=== PATIENT | male | born 1940 | race Caucasian/White ===

== ENCOUNTER → 2024-09-08 09:46 | Outpatient (REF) | payer MEDICARE, OTHER, SELFPAY ==
[2024-09-08 10:30] LABS: Hematocrit 51.9 % (39.0-52.0); Hemoglobin 17.1 g/dL (13.0-18.0); Mean Corp Hgb Conc. 32.9 g/dL (33.0-37.0); Mean Corpuscular Hgb 28.1 pg (27.0-31.0); Mean Corpuscular Volume 85.4 fL (80.0-94.0); Mean Platelet Volume 11.1 fL (7.4-10.4); Platelet Count 196 10^3/uL (130-400); Red Blood Cell Count 6.08 10^6/uL (4.70-6.10); Red Cell Dist. Width 14.7 % (11.5-14.5); White Blood Cell Count 7.4 10^3/uL (4.8-10.8)
[2024-09-08 11:02] LABS: ALT (SGPT) 22 U/L (0-50); AST (SGOT) 22 U/L (17-59); Albumin 4.3 g/dl (3.5-5.0); Alkaline Phosphatase 61 U/L (38-126); Blood Urea Nitrogen 18 mg/dl (9-20); Calcium 9.6 mg/dl (8.4-10.2); Carbon Dioxide 23 mmol/L (22-30); Chloride 109 mmol/L (98-107); Glucose 131 mg/dl (70-99); Sodium 137 mmol/L (135-145); Total Bilirubin 0.9 mg/dl (0.2-1.3); Total Protein 7.1 g/dl (6.3-8.2); eGFR > 60.00
== END ==
LOC: SDSPAT 09:46
PROVIDERS: ATTENDING PHYSICIAN Internal Medicine Cardiovascular Disease; FAMILY PHYSICIAN Internal Medicine
DX: Z01.818 Encounter for other preprocedural examination (principal)
CPT/HCPCS: 36415; 80053; 85027; 86850; 86900; 86901

== ENCOUNTER 2024-09-23 09:04 | Inpatient (IN) | payer MEDICARE, OTHER, SELFPAY ==
[2024-09-21] VITALS (10 sets, daily range): BP systolic 139–178; BP diastolic 85–132; BMI 29.2
[2024-09-21 17:16] LABS: % Basophils 0.4 % (0-2); % Eosinophils 2.5 % (0-6); % Immature Granulocytes 0.4 % (0-0.5); % Lymphocytes 23.5 % (20.5-51.1); % Monocytes 8.4 % (1.7-9.3); % Neutrophils 64.8 % (42.2-75.2); Absolute Eosinophils 0.2 10^3/uL (0-0.7); Absolute Monocytes 0.7 10^3/uL (0.1-0.6); Absolute Neutrophils 5.5 10^3/uL (1.4-6.5); Hematocrit 47.9 % (39.0-52.0); Hemoglobin 15.7 g/dL (13.0-18.0); Mean Corp Hgb Conc. 32.8 g/dL (33.0-37.0); Mean Corpuscular Hgb 28.2 pg (27.0-31.0); Mean Platelet Volume 11.4 fL (7.4-10.4); Nucleated Red Blood Cells % 0 % (-); Platelet Count 161 10^3/uL (130-400); Red Blood Cell Count 5.57 10^6/uL (4.70-6.10); Red Cell Dist. Width 14.6 % (11.5-14.5); White Blood Cell Count 8.4 10^3/uL (4.8-10.8)
[2024-09-21 17:25] LABS: ALT (SGPT) 21 U/L (0-50); AST (SGOT) 25 U/L (17-59); Albumin 4.2 g/dl (3.5-5.0); Alkaline Phosphatase 66 U/L (38-126); Blood Urea Nitrogen 15 mg/dl (9-20); Calcium 9.6 mg/dl (8.4-10.2); Carbon Dioxide 26 mmol/L (22-30); Chloride 106 mmol/L (98-107); Glucose 144 mg/dl (70-99); Sodium 139 mmol/L (135-145); Total Bilirubin 0.9 mg/dl (0.2-1.3); Total Protein 7.2 g/dl (6.3-8.2); eGFR > 60.00
--- NOTE | 2024-09-21 18:42 | ED.GENMED ---
History of Present Illness
General
Chief Complaint: Weakness
Source: patient and significant other
Exam Limitations: none
Time Seen by Provider: 09/21/24 18:41
History of Present Illness
History of Present Illness:
83-year-old male presents with disequilibrium this morning with a fall. Was off most of the morning. Patient felt he was off since eating a hamburger last evening. No chest pain shortness of breath. No syncope. Did have an unusual headache
bifrontal this morning that resolved with Tylenol. The significant other. Currently feels well. Looks well per
Past History
Past History
ED Past Medical History: Arrthythmia and Hypercholesterolemia
ED Past Surgical History: None, Orthopedic and Other (Mohs surgery. Hernia repair)
Social History
Tobacco: Non-smoker
Living: with family
Review of Systems
Review of Systems
All Other Systems: Not applicable
Respiratory: Reports no symptoms
Cardiac: Reports no symptoms
Neurological: Denies weakness or numbness
Phy Exam
Physical Exam
Physical Exam:
GENERAL: Alert and oriented in no apparent distress. Hard of hearing. No scalp trauma
EYE: Orbits normal.
NECK: Supple, mild paracervical tenderness
ENT: Pharynx without erythema
CARDIAC: Regular rate and rhythm without any obvious murmurs.
LUNGS: Clear breath sounds,normal
ABDOMEN: Soft, without focal tenderness or distention
NEUROLOGICAL: Alert and oriented , grossly non-focal. Speech normal. Cranial nerves II through XII intact. [id number] normal. Gait normal for him. Slight shuffled and slight wide-based but this apparently is normal
SKIN: Warm and dry, no rash or lesion, no discoloration, skin intact.
MUSCULOSKELETAL: No edema,no deformity.Good color
PSYCH: Normal and appropriate interaction.
Course
Orders/Labs/Results
Orders:
Orders
09/21/24 16:30
Electrocardiogram (*1) Urgent
Reason for Study: Fatigue / Weakness
CT Head W/o Iv Contrast Urgent
Comment: symptoms started when he woke up this AM
Reason For Exam: weakness, dizziness, unsteady gait,
09/21/24 16:31
EKG- Treatment ONCE
09/21/24 16:57
Complete Blood Count/With Diff Urgent
Comprehensive Metabolic Panel Urgent
09/21/24 18:42
Urinalysis Reflex To Culture Urgent
09/21/24 18:54
CT Cervical Spine W/o Iv Contr Urgent
Comment:
Reason For Exam: Fall/neck pain
Cardiac Monitoring- Treatment ONCE
09/21/24 20:49
EKG [Electrocardiogram (*1)] Urgent
Reason for Study: Other
Other Reason for Exam: arrhythmia
09/21/24 20:50
EKG- Treatment ONCE
09/21/24 22:00
Flush (0.9% Sodium Chloride) [Flush (Nss)] See Dose Instructions IV PER PROTOCOL
09/21/24 22:04
Admit/Transfer Patient As Directed
Co-Sign Provider:
Level of Care: Observation services
Assign to:: Telemetry
Physician / Group: Monica
Diagnosis: Rapid atrial lfibrillaton
Reason for Telemetry: Arrhythmia
Date to Stop Telemetry: 09/24/24
Time to Stop Telemetry: 11:00
PRN Pain Medication Management As Directed
May give lesser potent ordered pain med per pt: Yes
preference::
Protocol:: Medication orders for pain may be administered in a
manner that supports deferring to patient preference
when the pt is:
- Requesting an ordered lesser potent pain medication.
Least to most potent pain medications are defined
as: acetaminophen < NSAID < tramadol < opioids
(morphine, oxycodone, hydromorphone).
- Requesting a lesser dose of the same medication IF
ORDERED.
- Requesting a less intrusive route of administration
if both routes are prescribed by the provider (PO <
IV).
09/21/24 22:06
Code Status As Directed
Resuscitation Status: Full Code
09/24/24 11:00
DC Protocol for Telemetry ONCE
Abnormal Lab Results
09/21/24
16:57
MCHC 32.8 L g/dL
(33.0-37.0)
RDW 14.6 H %
(11.5-14.5)
MPV 11.4 H fL
(7.4-10.4)
Absolute Monos (auto) 0.7 H 10^3/uL
(0.1-0.6)
Glucose 144 H mg/dl
(70-99)
09/21/24 16:57
09/21/24 16:57
Vital Signs
Initial and Last Documented VS:
Initial Vital Signs
Temp Pulse Resp BP Pulse Ox
98.1 F 71 18 178/95 96
09/21/24 16:26 09/21/24 16:26 09/21/24 16:26 09/21/24 16:26 09/21/24 16:26
Last Documented Vital Signs
Temp Pulse Resp BP Pulse Ox
97.4 F 143 20 159/92 94
09/21/24 19:19 09/21/24 22:20 09/21/24 22:20 09/21/24 22:20 09/21/24 22:20
MDM/Problems Addressed
Differential Diagnosis Includes:
Patient describing more of a transient disequilibrium episode this morning. Not describing syncope or near syncope. Currently at baseline. Has a history of atrial fibrillation and is scheduled for an ablation. On Eliquis. Workup in progress.
*Pulse Oximetry
Patient hypoxic: no (96%)
*EKG
Interpreted by ED Provider?: Yes
Interpretation: abnormal
Comparison EKG: changes noted
Heart Rate: 64
Rate: normal
Rhythm: sinus
Barrington: normal axis
Interval: first degree heart block
QRS Pattern: normal QRS
Ischemia: no ischemia
*Critical Care Note
Total Time (30-74mins, 75-104mins- exclusive of procedures): Not Applicable
Data Reviewed
Review of Other/Old Records Reveals: Labs, Records and Testing
Update Note
Update Note:
Patient went into A-fib RVR. Rate 139. Will give his regular sotalol. Very asymptomatic. Will give him a chance to convert on his own. Elected to cardiovert with possible TIA this morning
ED Attending Note
-
Portions of this chart may have been created with voice recognition software.� Occasional wrong word or��sound alike� substitutions may have occurred due to the inherent limitations of voice recognition software.
Discharge Plan
Departure
Patient Disposition: Admit
Date of Disposition: 09/21/24
Time of Disposition: 21:16
Presentation/result/management discussed w/ accepting /: carlos
Discharge Problem:
TIA versus near syncope, PAF/RVR
Prescriptions:
No Action
simvastatin 40 MG tablet
20 mg PO QPM
esomeprazole magnesium [Nexium] 40 MG capsule,delayed release(DR/EC)
40 mg PO PRN PRN (Reason: upset stomach)
Pradaxa:
150 tab PO BID
Sotalol HCl
0.5 tab PO BID
Patient Comments:
Pt states he takes 10mg in the morning and 10mg at night
doxycycline hyclate 100 MG capsule
100 mg PO DAILY
Patient Comments:
finished this prescription today per patient.
Referrals:
Dawit Remy DO [Family Provider, Internal Medicine]
Interventions
Interventions:
*General Assessment Last Done: 09/21/24 19:10
*Neglect/Abuse Screening Last Done: 09/21/24 19:10
*ED- Fall Risk Assessment Last Done: 09/21/24 19:10
*ED COVID-19 Vaccine History Last Done: 09/21/24 19:10
ED- Cardiac Assessment Last Done: 09/21/24 19:10
ED- Neurological Assessment Last Done: 09/21/24 19:10
ED- Pulmonary Assessment Last Done: 09/21/24 19:10
Discharge Date and Time
Print Language: DOMINICAN
--- NOTE | 2024-09-21 21:31 | HPS.HSE ---
Family Physician
-
Family Physician: Dawit Remy
Chief Complaint
-
Weakness
History of Present Illness
This is a 83-year-old with past medical history significant for hyperlipidemia, paroxysmal atrial fibrillation on anticoagulation, hypertension, GERD who presented to the emergency department after having episode of weakness and fall this a.m.
States he had an episode of disequilibrium and a fall this morning. He did not lose consciousness. Fell off most of the morning. Denied having any chest pain or shortness of breath. Reports having an unusual headache that resolved with Tylenol.
Otherwise feels well while he was in the emergency department. After being evaluated in the emergency department he did go into rapid atrial fibrillation with rates as high as 160.
In the ED, blood pressure was 150/90, pulse rate of 160, respirate rate of 14 and temperature of nine 7.4 satting 100% on room air.
ECG currently shows atrial fibrillation with RVR at a rate of 139. No acute ST or T wave changes.
He had a CT of the head which was negative for any acute intracranial bleed. CT of the neck was negative for fracture or dislocation or subluxation.
His electrolytes were within normal limits and BUN/creatinine were normal. CBC was unremarkable.
Medical History
Past Medical History
Past Medical History: Reports HTN, Hypercholesterolemia and Other
Additional Past Medical History:
Proximal atrial fibrillation
Past Surgical History: Reports Other (Hernia repair)
Social History
Tobacco: Non-smoker
Alcohol: None
Drug: None
Personal:
Living: With Family
Employment: Retired
Family History
Family History: Not pertinent
Allergies / Home Medications
Allergies reflects when Allergies were last updated in [facility].
Home Medications with original date entered in [facility]
Allergy/Medication List:
Allergies
Allergy/AdvReac Type Severity Reaction Status Date / Time
No Known Allergies Allergy Verified 12/26/16 06:14
Home Medications
simvastatin 40 mg tablet 20 mg PO QPM 08/02/10
Apixaban 5 mg tablet, 5 mg p.o. twice daily
Sotalol HCl 80 mg tab 80 mg PO BID 12/26/16
Review of Systems
-
Constitutional: Reports No Symptoms
EENT: Reports No Symptoms
Respiratory: Reports No Symptoms
Cardiac: Reports No Symptoms
Abdomen/GI: Reports No Symptoms
: Reports No Symptoms
Musculoskeletal: Reports No Symptoms
Skin: Reports No Symptoms
Neurological: Reports No Symptoms
Endocrine: Reports No Symptoms
Hematologic/Lymphatic: Reports No Symptoms
Psych: Reports No Symptoms
Physical Exam
Vital Signs
Vital Signs
Temp Pulse Resp BP Pulse Ox
97.4 F 167 14 150/99 94
09/21/24 19:19 09/21/24 21:00 09/21/24 21:00 09/21/24 20:47 09/21/24 21:00
Physical Exam
General: Well Developed, Well Nourished and No Apparent Distress
HEENT: NormoCephalic, Moist mucous membranes and Atraumatic
Respiratory: Clear
Cardiac: S1/S2, Irregular Rhythm and Tachycardia; No Murmur or Rub
GI: Soft, Non Tender, Non Distended and Normal Bowel Sounds; No Organomegaly
Rectal: Deferred by Provider
Musculoskeletal: No Clubbing, No Cyanosis and No Edema
Skin: No Rash
Neuro: Nonfocal/grossly intact
Laboratory Results
-
09/21/24 16:57
09/21/24 16:57
Laboratory Results
Total Bilirubin 0.9 mg/dl (0.2-1.3) 09/21/24 16:57
AST 25 U/L (17-59) 09/21/24 16:57
ALT 21 U/L (0-50) 09/21/24 16:57
Alkaline Phosphatase 66 U/L (38-126) 09/21/24 16:57
Data Reviewed
-
CT Scan: Report Reviewed by me
Medical Tests (Nuc Med, Echo, EKG etc): Image Personally Visualized and interpreted
Lab Data: Labs Reviewed by me
Old Records: Reviewed
Impression/Plan
-
IMPRESSION:
83-year-old past medical history significant for proximal atrial fibrillation, hypertension, platypnea presented to the emergency department with weakness and feeling not his usual self and found to be in rapid atrial fibrillation while in the
emergency department. He apparently had a fall at home but no focal injuries. Head CT was negative for any acute intracranial process. C-spine shows no subluxation, fractures or any other injuries. Examination revealed no peripheral injuries.
ECG shows atrial fibrillation at a rate of 140 with 4 degree AV block. He is currently hemodynamically stable. At rest he is satting 98% and asymptomatic. Denies feeling any palpitations. He is pending an ablation next month.
PLAN:
Uncontrolled atrial fibrillation with rapid ventricular response -hemodynamically stable, no signs of congestive heart failure, no sign of cardiac ischemia.
-Admit to telemetry
-Continue sotalol 80 mg twice daily
-PRN metoprolol IV for rate control
-N.p.o. after midnight in case patient may need cardioversion for rate control
-Continue Eliquis 5 mg
-Cardiology consultation.
DVT prophylaxis�on Eliquis
CODE STATUS�full code
[2024-09-22] VITALS (19 sets, daily range): BP systolic 96–145; BP diastolic 64–110; BMI 28.3
[2024-09-22] MEDS: LOPRESSOR 5 MG IV ×2 (02:13→06:13)
[2024-09-22 02:40] LABS: Urine Albumin Negative (Neg - Trace); Urine Bilirubin Negative (Negative); Urine Character Clear (Clear); Urine Color Yellow; Urine Glucose Negative (Negative); Urine Ketone Negative (Negative); Urine Leukocyte Negative (Negative); Urine Nitrite Negative (Negative); Urine Occult Blood Negative (Negative); Urine Urobilinogen Negative (Neg - 1+); Urine pH 6.5 (5.0-9.0)
[2024-09-22 03:08] LABS: Blood Urea Nitrogen 12 mg/dl (9-20); Calcium 9.3 mg/dl (8.4-10.2); Carbon Dioxide 24 mmol/L (22-30); Chloride 109 mmol/L (98-107); Estimated Creatinine Clearance 73 ml/min; Glucose 125 mg/dl (70-99); Magnesium 2.1 mg/dl (1.6-2.3); Potassium 4.6 mmol/L (3.5-5.1); Sodium 137 mmol/L (135-145); eGFR > 60.00
[2024-09-22 03:40] LABS: TSH Reflex To Free T4 2.06 uIU/ml (0.47-4.68)
--- NOTE | 2024-09-22 04:44 | PTCARENOTE ---
Pt. rec'd into room 2250 from ED AAOx3, NAVAJO & forgetful with unsteady gait (fall precautions/bed alarm initiated). A-fib on the monitor with rate up to 160's with activity, 120's with rest. Dose of Lopressor IV given with some improvement; HR down
to high 90's-110's. Pt. oriented to room and plan of care, understanding verbalized. Admission and med list completed. Pt. resting quietly.
--- NOTE | 2024-09-22 08:07 | W.PN.HOSP.TC ---
Today's Communication/Plan
-
Cardiology consult
Assessment / Plan
Assessment / Plan
Gen-AAOx3, NAD
HEENT-NC, AT, anicteric, clear oral mm
Neck-supple
CV-reg, no M, +S1/S2
Lungs-clear B/L
Abd-soft, NT, ND
Ext-no edema
Musculoskeletal-no cyanosis, clubbing
Skin-warm and dry
Neuro-grossly non-focal
Psych-calm, cooperative
Paroxysmal atrial fibrillation -with RVR. Presented with symptoms of generalized weakness and fall.
Rates remain fast today. Will discuss with cardiology. Currently on sotalol and Eliquis. Can start IV Cardizem if okay with cardiology. Await their input.
TSH 2.0.
Essential hypertension with hypertensive urgency -he is due for his ramipril this morning. If we start Cardizem for rate control anticipate blood pressure will also improve.
Hyperlipidemia -on simvastatin.
Full code
Anticipated Discharge: 24 - 48 hours
Subjective/Interval History
-
Date of Service: September 22, 2024
Patient seen and examined. States he feels better. Denies any chest pain or shortness of breath.
Objective Data
-
Labs:
Laboratory Results
09/22/24
02:30
Sodium 137
Potassium 4.6
Chloride 109 H
Carbon Dioxide 24
BUN 12
Creatinine 0.8
Glucose 125 H
Calcium 9.3
Vital Signs:
Vital Signs
Temp Pulse Resp BP Pulse Ox
98.5 F 143 18 145/109 96
09/22/24 07:55 09/22/24 07:55 09/22/24 07:55 09/22/24 07:48 09/22/24 07:55
I&O
09/21/24 09/22/24 09/23/24
06:59 06:59 06:59
Output Total 400 / 400
Balance -400 / -400
Review of Systems
-
History Source: Patient
All other systems: Reviewed and negative
[2024-09-22] MEDS: BETAPACE 80 MG PO ×2 (08:48→20:19)
[2024-09-22] MEDS: CARDIZEM 15 MG IV (08:48)
[2024-09-22] MEDS: ELIQUIS 5 MG PO (08:48)
[2024-09-22] MEDS: FLUSH (NSS) 1 FLUSH IV (08:50)
[2024-09-22] MEDS: CARDIZEM 125 IV (08:50)
--- NOTE | 2024-09-22 09:27 | PTCARENOTE ---
Patient resting in bed this morning, incontinent of urine as he was struggling to get to the side of the bed and set off alarm. Patient is oriented x 3, but very hard of hearing and vision is poor. Reinforced need to use call giles for assistance.
Assisted with rolling walker to the chair, alarm in place, call giles in reach. Patient in AF with rates up to the 150's, given cardizem 15mg IV as ordered and drip started at 5mg/hr. Remains in AF but did quickly drop to the 50-60's after IVP,
placed cardizem gtt on hold for now, monitoring BP, cardiology notified. Patient's SO now in visiting
--- NOTE | 2024-09-22 09:37 | CM ---
Reviewed chart. Met with Mr. Alvarez and his friend, Stacy to review discharge plans. He states prior to admission he resides with his friend Stacy in a two story home without any steps to enter. He states he has a full flight of steps to get to
bedroom/full bathroom. He states he has a powder room on the first floor. He states prior to admission he was independent with ambulation and adls. He states he does not have any DME in the home. He states he has a prescription plan with [facility]. Will
need to see his current functional level to see if he will have any skilled care needs. The discharge plan is to return home with his friend and [facility] if indicated when medically stable.
[2024-09-22 09:54] LABS: Glucose - Point of Care 120 mg/dl (70-99)
--- NOTE | 2024-09-22 09:56 | CON.NEURO ---
Addendum entered and electronically signed by Mehdi May MD 09/22/24 12:40:
Studies reviewed.
I have personally examined the patient. I reviewed and agree with the SWAT TEAM MEMBER's Note.
My addenda:
Awake, interactive. Maintains eyes closed. No acute distress.
Speech with dysarthria.
Follows 2-step requests w/ difficulty. No tremor.
Extra-ocular movements grossly intact.
Facial movements full and symmetric. Hearing intact to normal conversational volume.
Normal UE movements bilaterally.
Neck: full ROM.
Chest: no dyspnea
Heart: no JVD
Ext: (-) Clubbing, (-) Cyanosis, (-) Edema
IMPRESSIONS/RECOMMENDATIONS:
Abrupt onset of dysarthria and left facial weakness
Most likely due to acute anterior or posterior circulation ischemic stroke due to evidence of left homonymous hemianopsia
MRI of brain without contrast
hold DOAC x 2 days then restart
provide ASA 81 mg daily starting now (300 mg LA), then stop when change back to DOAC
Rehab evaluations
Permissive hypertension (up to 220/120) x 24 hours then normotension
check CTA now due to possible clot for retrieval
follow lipid profile
D/W patient / family / nursing
All questions answered.
Will continue to follow pending results.
Original Note:
Documented by User: Lindsey Jerome NP 09/22/24 12:06
Neuro Assessment/Plan
Assessment
The patient is a right-handed 83-year-old male with persistent atrial fibrillation (on sotalol and apixaban), dyslipidemia, hypertension, and pulmonary nodules who presented to the [facility] on 09/21/2024 with a chief complaint of weakness with an
associated fall now with dysarthria, left facial droop and left hemianopia.
Head CT: No acute intracranial pathology. Mild ventricle sulcal prominence consistent with atrophy.
Head/Neck CTA: No acute vascular pathology. No M1 and M2 occlusion. Less than 50% right proximal internal carotid artery stenosis. 50-69% left proximal internal carotid artery stenosis. Severe multilevel degenerative disc disease. Stable.
Plan
Impression: Acute ischemic CVA not a TNK candidate due to receiving anticoagulation, HCT and CTA without intracranial pathology or LVO
-check MRI brain to evaluate for stroke
-stop anticoagulation for 48 hours than may resume apixaban
-BP goal is normotension.
-check hemoglobin A1C. Goal is normoglycemia.
-check lipid panel, Goal LDL after stroke is <70 continue atorvastatin
-PT/OT/ST evaluations
-DVT prophylaxis
-continue neurochecks and NIHSS per unit guidelines
-stroke education material to be given
Plan of care discussed with Dr. May, nurse, patient and family all questions encouraged and answered.
Consultation
Order
Date of Consultation: 09/22/24
Requesting Provider: hospitalist
Reason for Consult: stroke alert
Subjective/Objective
Subjective Data
Date of Service: September 22, 2024
The patient is a right-handed 83-year-old male with persistent atrial fibrillation (on sotalol and apixaban), dyslipidemia, hypertension, and pulmonary nodules who presented to the [facility] on 09/21/2024 with a chief complaint of weakness with an
associated fall. He had a fall on the day of admission and then felt off for the rest of the day which prompted an ER evaluation. He denies head strike or LOC. Reported having an unusual headache that resolved with Tylenol. While in the emergency
department, his persistent atrial fibrillation began having elevated rates and he was having RVR. Head CT without acute findings. He denies missed doses of apixaban. He was evaluated by Dr. Lake in the outpatient setting last month. The plan
was for atrial fibrillation ablation on 09/28/2024. The patient denies chest pain, dizziness, shortness of breath, and palpitations. This morning for medications at breakfast was seen in his normal state of health around 0850. At 0950 a stroke alert
was called due to left facial droop and dysarthria. He received his apixaban this morning. NIHSS 9. Head CT without acute intracranial pathology. CTA head and neck with no acute vascular pathology, no M1 and M2 occlusion, and less than 50% right
proximal internal carotid artery stenosis. 50-69% left proximal internal carotid artery stenosis. Not a TNK candidate due to receiving anticoagulation. Not an IAT candidate imaging does not show large vessel occlusion.
Objective Data
Vital Signs
Temp Pulse Resp BP Pulse Ox
98.5 F 126 18 153/118 96
09/22/24 07:55 09/22/24 08:48 09/22/24 07:55 09/22/24 08:48 09/22/24 07:55
Lab Results
09/21/24 16:57
09/22/24 02:30
Sodium 137 mmol/L (135-145) 09/22/24 02:30
Potassium 4.6 mmol/L (3.5-5.1) 09/22/24 02:30
BUN 12 mg/dl (9-20) 09/22/24 02:30
Glucose 125 mg/dl (70-99) H 09/22/24 02:30
Calcium 9.3 mg/dl (8.4-10.2) 09/22/24 02:30
Patient Allergies
No Known Allergies Allergy (Verified 12/26/16 06:14)
CVA Assessment
Onset of Stroke Symptoms
Date of onset of symptoms: 09/22/24
Time of onset of symptoms: 09:50
Date last time pt seen normal: 09/22/24
Time last time pt seen normal: 08:50
NIH Stroke Score
Level of Consciousness: 0 - Alert
LOC Questions: 0-Answers both correctly
LOC Commands: 0-Performs both correctly
Best Horizontal Gaze: 1-Partial gaze palsy (right gaze preference)
Visual Ruiz: 1=Partial hemianopia (left hemianopia)
Facial Palsy: 1=Minor paralysis (left droop)
Motor - Right Arm: 0=No drift 10 seconds
Motor - Left Arm: 0=No drift 10 seconds
Motor - Right Le-No drift 5 seconds
Motor - Left Le-No drift 5 seconds
Limb Ataxia: 1-Present in one limb
Sensation: 2-Severe loss
Best Language: 0-No aphasia
Dysarthria: 1-Mild slurring
Extinction and Inattention: 2-Total mark inattention
NIH Total Score:: 9
Tenecteplase Contraindications
Inclusion and Exclusion criteria reviewed: Yes
Reasons for NON-Tx with Thrombolytics ABSOLUTE Exclusions: Patient taking oral anticoagulant and last dose within 48 hours
IAT Contraindications: Imaging doesn't show large vessel occlusion as cause of stroke
Modified Madison Score (MRS)
-
Modified Arnel Scale (mRS): Moderate disability. Requires some help, able to walk unassisted.
Score: 3
Review of Systems
-
Unable to obtain full review of systems at this time due to: Acuity
Physical Exam
-
General: Appears Stated Age
Eyes: Wolsey Conjunctivae
HEENT: Normocephalic and Atraumatic
Respiratory: No Dyspnea
Cardiac: No JVD
GI: Non-distended
Skin: Warm and Dry
Extremities: No Clubbing, No Cyanosis and No Edema
Psych: Unable to Assess
Extended Neurological Exam
Mood & Affect: Unable to Assess
Attention Span & Concentration: Awake, Alert, Interactive and No Difficulty with 2 Step Request
Tremor: Hand Tremor Absent and Head Tremor Absent
Speech: Dysarthric
Cranial Nerve II: Left Eye: Visual Ruiz Reduced (left minocular hemianopia )
Cranial Nerve II: Right Eye: Visual Ruiz Intact
Cranial Nerves III, IV, : Extraocular Movement: Reduced (right gaze preference)
Cranial Nerve V: Facial Sensation: Reduced (on left)
Cranial Nerve VII: Facial Symmetry: Reduced (left droop)
Cranial Nerve VIII: Hearing: Unremarkable Hearing to Normal Conversational Volume
Muscle Strength, Overall: Full Throughout
Muscle Bulk & Tone: Bulk Unremarkable and Tone Unremarkable
Pronator Drift: No Drift in Upper Extremities and No Drift in Lower Extremities
Coordination: Other (ataxia to LUE)
Gait & Station: Other (gait deferred)
Data Reviewed
-
CT-A: Report Reviewed and Image Reviewed
CT Head: Report Reviewed and Image Reviewed
Labs: Report Reviewed
Lipid Profile: Pending
HgbA1C: Pending
Reviewed with: Physician, Nurse, Patient and Family
Old Records: Summarized
Medications
-
Active Medications
Generic Name Dose Route Start Last Admin
Trade Name Freq PRN Reason Stop Dose Admin
Acetaminophen 650 mg 09/22/24 01:22
Acetaminophen 325 Mg Tablet PO 10/20/24 01:21
Q6HPRN PRN
mild pain/ fever>100.5F
Apixaban 5 mg 09/22/24 08:00 09/22/24 08:48
Apixaban (Eliquis) 5 Mg Tablet PO 10/20/24 07:59 5 mg
BID DEE DEE Administration
Atorvastatin Calcium 20 mg 09/22/24 18:00
Atorvastatin (Lipitor) 20 Mg Tablet PO 10/20/24 17:59
QPM DEE DEE
Diltiazem HCl 125 mg in 125 mls @ 0 mls/hr 09/22/24 08:30 09/22/24 08:50
Cardizem IV 125 mls
PER PROTOCOL DEE DEE Administration
Protocol
Per Protocol
Metoprolol Tartrate 5 mg 09/22/24 01:22 09/22/24 06:13
Metoprolol 5 Mg/5 Ml Vial IV 10/20/24 01:21 5 mg
Q4HPRN PRN Administration
heart rate > 130,SBP > 100
Ramipril 5 mg 09/22/24 08:00 09/22/24 08:48
Ramipril (Altace) 5 Mg Capsule PO 10/20/24 07:59 5 mg
DAILY DEE DEE Administration
Sodium Chloride 0 flush 09/21/24 22:00 09/22/24 08:50
Sodium Chloride 0.9% (Flush) Syringe IV 10/19/24 21:59 1 flush
PER PROTOCOL DEE DEE Administration
Sotalol HCl 80 mg 09/22/24 08:00 09/22/24 08:48
Sotalol 80 Mg Tablet PO 10/20/24 07:59 80 mg
BID DEE DEE Administration
Home Medications
�Medication �Instructions �Recorded
apixaban 5 mg tablet (Eliquis) 5 mg PO BID 09/22/24
ramipril 5 mg tablet 5 mg PO DAILY 09/22/24
simvastatin 20 mg tablet 20 mg PO QPM 09/22/24
sotalol 80 mg tablet 80 mg PO BID 09/22/24

Documented by User: Mehdi May MD 09/22/24 12:29
CVA Assessment
NIH Stroke Score
NIH Total Score:: 9
Modified Arnel Score (MRS)
-
Score: 3
--- NOTE | 2024-09-22 10:00 | CON.CAR ---
Addendum entered and electronically signed by Mingo Renee MD 09/22/24 12:38:
I saw and examined the patient.
The PIPE FITTER HELPER's note was reviewed and I agree with the note.
Comment:
83-year-old male with persistent atrial fibrillation (on sotalol and apixaban), dyslipidemia, hypertension, and pulmonary nodules who presented to the emergency department with a chief complaint of weakness with an associated fall. Cardiology is
consulted for A-fib with RVR. Initial imaging in the ER showed no acute intracranial abnormality. He was found to be in A-fib with RVR with heart rates in the 160s�170s so was given an IV diltiazem bolus at 8:38 AM. Thereafter, heart rates were
in the 50s�60s and BPs decreased to 90s/60s. Around 10 AM a rapid response was called for left facial droop and visual changes. Head CT showed no acute intracranial pathology and head/neck CTA showed no acute vascular pathology. Neurology is
following. Of note, diltiazem was recently stopped as an outpatient due to concern for it causing fatigue. Patient is scheduled for atrial fibrillation ablation on 09/28/[address] Lake.
Physical exam reveals ill-appearing man; he is confused and very sleepy; heart rate is regular with an irregular rhythm; he has no murmurs, lungs are clear, and he has no lower extremity edema
Concern for stroke. Neurology following. So far CT/CTA were unremarkable. Follow-up brain MRI. Neurology recommends holding anticoagulation for 48 hours. Aim to keep BP normal.
Persistent atrial fibrillation. RVR on admission, now resolved after 1 dose of IV diltiazem. Hold additional rate control for now given bradycardia and borderline blood pressures. Continue sotalol. Eliquis on hold for possible CVA as above. Plan
is for eventual rhythm control with ablation 09/28/2024
Original Note:
Consultation
Consultation Request
Date/Time Consultation Requested: 09/22/2024 01:20
Date/Time Consultation Performed: 09/22/2024 09:00
Requesting Provider: Dr. Anderson
Performing Provider: VERONICA Avendaño for Dr. Renee
Reason for Consultation: Atrial fibrillation with rapid ventricular response
Medical History
-
Chief Complaint: Weakness with mechanical fall
History of Present Illness:
Patricio Alvarez is an 83-year-old male with persistent atrial fibrillation (on sotalol and apixaban), dyslipidemia, hypertension, and pulmonary nodules who presented to the emergency department with a chief complaint of weakness with an associated
fall. He presented with his significant other, Stacy. He had a fall on 09/21/2024 and then fell off for the rest of the day. He presented for ER evaluation. While in the emergency department, his persistent atrial fibrillation began having
elevated rates and he was having RVR. Head CT without acute findings. He denies missed doses of apixaban. He was evaluated by Dr. Lake in the outpatient setting last month. The plan was for atrial fibrillation ablation 09/28/2024. The patient
denies chest pain, dizziness, shortness of breath, and palpitations.
Past Medical History
Past Medical History: Arrhythmias (Persistent atrial fibrillation [sotalol & apixaban]), HTN, Hypercholesterolemia and Other (Pulmonary nodules)
Past Surgical History: Other (Hernia repair)
Social History
Tobacco: Non-Smoker
Alcohol: Occasional
Drug: None
Personal: Partner (Stacy)
Employment: Retired
Family History
Family History: Reviewed & Not Pertinent
Allergies / Home Medications
Allergy/AdvReac Type Severity Reaction Status Date / Time
No Known Allergies Allergy Verified 12/26/16 06:14
�Medication �Instructions �Recorded �Confirmed �Type
apixaban 5 mg tablet (Eliquis) 5 mg PO BID 09/22/24 09/22/24 History
ramipril 5 mg tablet 5 mg PO DAILY 09/22/24 09/22/24 History
simvastatin 20 mg tablet 20 mg PO QPM 09/22/24 09/22/24 History
sotalol 80 mg tablet 80 mg PO BID 09/22/24 09/22/24 History
Review of Systems
-
History Source: Patient
All other systems: Negative unless noted
Constitutional: Fatigue
EENT: No Symptoms
Respiratory: No Symptoms
Cardiac: No Symptoms
Abdomen/GI: No Symptoms
: No Symptoms
Musculoskeletal: No Symptoms
Skin: No Symptoms
Neurological: No Symptoms
Endocrine: No Symptoms
Hematologic/Lymphatic: No Symptoms
Physical Exam
Vital Signs
Temp Pulse Resp BP Pulse Ox
98.5 F 126 18 153/118 96
09/22/24 07:55 09/22/24 08:48 09/22/24 07:55 09/22/24 08:48 09/22/24 07:55
Lab Results
09/21/24 16:57
09/22/24 02:30
Physical Exam
General: Well Developed, Well Nourished and Comfortable
HEENT: Other (Conjunctival redness, profoundly hard of hearing)
Respiratory: Non Labored Respirations
Cardiac: S1/S2 and Irregular Rhythm
Breast: Deferred by me
GI: Soft, Non Tender, Non Distended and Normal Bowel Sounds
Rectal: Deferred by Provider
Genito-urinary: No Costovertebral Tender
Musculoskeletal: No Clubbing, No Cyanosis and No Edema
Skin: Warm and Dry
Neuro: Oriented
Hematologic/Lymphatic: No Lymphadenopathy
Psych: Calm
Impression / Plan
-
I/P: 83M with persistent atrial fibrillation (on sotalol and apixaban), dyslipidemia, hypertension, and pulmonary nodules who presented to the emergency department with a chief complaint of weakness with an associated fall.
Primary oil recovery operator: Dr. Gotti
EP: Dr. Lake
Persistent atrial fibrillation, now with RVR
- Still in RVR on sotalol, add diltiazem bolus and drip - this requires intensive monitoring
- Plan is for eventual rhythm control with ablation 09/28/2024
- Oral Anticoagulation: Apixaban 5 mg twice daily, he denies missed doses and abnormal bleeding, he did have a fall prior to this admission
- [id number]: Score at least 3 (HTN, age 75 or more)
Mechanical fall with associated weakness, per primary service
Hypertension, may need to hold ramipril to allow for more rate control
Dyslipidemia, on simvastatin
Data Reviewed
-
EKG: Report Reviewed by me (Atrial fibrillation with rap ventricular response, T wave abnormality in inferior and lateral leads, rate 139)
CT Scan: Report Reviewed by me (Head: No acute intracranial abnormality; C-spine: No acute abnormality)
Medical Tests (Nuc Med, Echo etc): Report Reviewed by me (TTE 2022: Grade III DD. LVEF 55 to 60%.)
Labs: Labs Reviewed by me
Old Records: Reviewed
--- NOTE | 2024-09-22 10:08 | PTCARENOTE ---
Ordered the patient breakfast, went in to check on him and re check BP. Patient appeared to be sleeping in the chair but left facial droop noted. Patient slow to respond with garbled speech and left arm weak when he was asked to raise it. DUCT MAKER
called, patient transferred to the bed and is now in CT with ICU nurse and neurology. SO updated and waiting in the room.
--- NOTE | 2024-09-22 10:12 | RR ---
A Rapid Response was called on this patient, please see Rapid Response form.
[2024-09-22] MEDS: NSS 1000 IV (13:25)
[2024-09-22] MEDS: ASPIR LOW (ENTERIC COATED) 81 MG PO (13:57)
--- NOTE | 2024-09-22 15:01 | PTCARENOTE ---
Patient passed swallowing test without difficulty. Still has a slight left facial droop with slight drooling with liquids but no coughing and able to swallow pills. Patient is receiving 1L NSS at 250ml/hr as ordered by cardiology. Additional IV
bolus ordered by Dr. Sumner, however ok to d/c that duplicate bolus as per attending. Patient having an echo at the bedside. Remains in AF, with rate in the 70's, BP 120/89.
[2024-09-22] MEDS: LIPITOR 20 MG PO (17:40)
[2024-09-22] MEDS: SIMBRINZA 1%-0.2% OPHTH SUSP 1 DROP OPHTH (17:43)
[2024-09-22] MEDS: XALATAN OPHTHALMIC SOLUTION OPHTH (17:43)
[2024-09-22] MEDS: ELIQUIS PO (20:14)
[2024-09-22] MEDS: XALATAN OPHTHALMIC SOLUTION 1 DROP OPHTH (20:18)
[2024-09-22] MEDS: NON-FORMULARY ITEM 1 UNIT OPHTH (22:10)
--- NOTE | 2024-09-22 23:21 | PTCARENOTE ---
Received patient at change of shift. Afib on the monitor, HR in the 80s. NIHSS 3 at change of shift, L facial droop and L sided neglect. Bed alarm in place. Reports from Neurology and Cardiology say Nhung on hold but no order, confirmed with REHAB OFFICE COORDINATOR S
Elle and held Nhung. No complaints from pt at this time, call giles within reach.
[2024-09-23] VITALS (9 sets, daily range): BP systolic 92–150; BP diastolic 62–95; PULSE 135–200; BMI 28.2
[2024-09-23 04:29] LABS: Blood Urea Nitrogen 12 mg/dl (9-20); Calcium 9.7 mg/dl (8.4-10.2); Carbon Dioxide 21 mmol/L (22-30); Chloride 111 mmol/L (98-107); Estimated Creatinine Clearance 73 ml/min; Glucose 105 mg/dl (70-99); HDL Cholesterol 49 mg/dl; LDL Cholesterol, Calculated 130 mg/dl; Potassium 4.7 mmol/L (3.5-5.1); Sodium 139 mmol/L (135-145); Total Cholesterol 212 mg/dl (50-199); Triglyceride 169 mg/dl (10-149); Very Low Density Lipoprotein 33 mg/dl (0-30); eGFR > 60.00
--- NOTE | 2024-09-23 07:21 | W.PN.HOSP.TC ---
Addendum entered and electronically signed by Jone Sumner DO 09/23/24 12:33:
Discussed with cardiology and neurology. Pradaxa started for potential Eliquis failure.
Updated patient's son Juni on the phone. All questions answered.
Anticipate discharging to acute rehab when stable.
Original Note:
Today's Communication/Plan
-
Flomax
PT/OT
Control heart rate
Hold Eliquis
Start Lovenox for VTE prophylaxis
Assessment / Plan
Assessment / Plan
Gen-AAOx3, NAD
HEENT-NC, AT, anicteric, clear oral mm
Neck-supple
CV-reg, no M, +S1/S2
Lungs-clear B/L
Abd-soft, NT, ND
Ext-no edema
Musculoskeletal-no cyanosis, clubbing
Skin-warm and dry
Neuro-grossly non-focal
Psych-calm, cooperative
Acute strokes -presumably embolic given distribution on MRI, right frontal, parietal, occipital lobes, as well as posterior right insular cortex.
Timing of stroke suspicious for hemodynamic influence given onset 2 hours after IV Cardizem morning of September 22. Nursing noted fairly rapid drop in heart rate and blood pressure after Cardizem administration. He never received IV Cardizem infusion,
only got the bolus dose.
Today the patient feels back to baseline. He was not even aware that he had a stroke. I see no significant neurologic deficits.
CTA head and neck shows no acute vascular pathology. No M1/M2 occlusion. Less than 50% right proximal ICA stenosis, 50 to 69% left proximal ICA stenosis. Severe multilevel degenerative disc disease.
PT/OT consulted. No issues with swallowing.
Neurology recommends holding Eliquis for 48 hours, use aspirin 81 mg daily until then. Continue atorvastatin.
Permissive hypertension. He did require 1 L of IV fluids yesterday for hypotension. Blood pressure improved.
Paroxysmal atrial fibrillation -with RVR. Presented with symptoms of generalized weakness and fall.
Rates remain fast today. Currently on sotalol and Eliquis. Cardiology contemplating eventual rhythm control with ablation on Saturday.
TSH 2.0.
Essential hypertension with hypertensive urgency -urgency resolved. Ramipril on hold for relative hypotension.
Hyperlipidemia -on simvastatin at home, currently on atorvastatin.
Nursing notes urinary frequency and need to stand to urinate. Bladder scan without significant residual volume. Urinalysis negative. Will add Flomax.
Full code
Dispo -PT recommending acute rehab. Will discuss with case management.
Anticipated Discharge: > 48 hours
Subjective/Interval History
-
Date of Service: September 23, 2024
Patient seen and examined. No complaints.
Objective Data
-
Labs:
Laboratory Results
09/23/24
03:57
Sodium 139
Potassium 4.7
Chloride 111 H
Carbon Dioxide 21 L
BUN 12
Creatinine 0.8
Glucose 105 H
Calcium 9.7
Vital Signs:
Vital Signs
Temp Pulse Resp BP Pulse Ox
97.8 F 67 18 139/94 96
09/23/24 04:00 09/23/24 05:00 09/23/24 04:00 09/23/24 03:53 09/23/24 04:00
I&O
09/22/24 09/23/24 09/24/24
06:59 06:59 06:59
Intake Total 1480 / 1480
Output Total 400 / 400 2300 / 2300
Balance -400 / -400 -820 / -820
Review of Systems
-
History Source: Patient
All other systems: Reviewed and negative
--- NOTE | 2024-09-23 08:13 | PTCARENOTE ---
Patient resting in bed this morning, NIH completed with outgoing asset protection specialist RN. Improvement noted with patient's left facial droop and LUE ataxia. Still has inattention to his left side, but moves his LUE and LLE well with equal strength. Patient
seen by Dr. Sumner, notified of the patient's frequent episodes of urination throughout the night, with difficulty starting his stream. Remains in AF with rates in the 130's, Dr. Sumner will discuss rate control with cardiology.
[2024-09-23 08:50] LABS: Glycohemoglobin (HgbA1c) 6.4 % (4.0-5.6)
[2024-09-23] MEDS: ASPIR LOW (ENTERIC COATED) 81 MG PO (09:13)
[2024-09-23] MEDS: BETAPACE 80 MG PO ×2 (09:13→19:49)
[2024-09-23] MEDS: FLUSH (NSS) 2 FLUSH IV (09:14)
[2024-09-23] MEDS: FLOMAX 0.4 MG PO (09:14)
[2024-09-23] MEDS: SIMBRINZA 1%-0.2% OPHTH SUSP 1 DROP OPHTH ×3 (09:14→17:21)
--- NOTE | 2024-09-23 09:42 | W.PN.CD ---
Today's Communication / Plan
-
- Continue sotalol.
- Given severe bradycardia and hypotension with new CVA, we will allow higher heart rate and blood pressure
Impression / Plan
-
I/P: 83M with persistent atrial fibrillation (on sotalol and apixaban), dyslipidemia, hypertension, and pulmonary nodules who presented to the emergency department with a chief complaint of weakness with an associated fall.
Primary observation nurse: Dr. Myers
EP: Dr. Lake
Persistent atrial fibrillation, now with RVR
- Still in RVR on sotalol, add diltiazem bolus and drip - this requires intensive monitoring
- Brain MRI on 09/22/2024 showed numerous foci of restricted diffusion within the right frontal, parietal and occipital lobes involving posterior right insular cortex with acute infarctions. This could be consistent with emboli versus episodes of
hypoperfusion. Patient reports that he has been compliant with Eliquis.
- Eliquis was held to avoid any hemorrhagic transformation. Case was discussed with neurology.
- Neurology is willing to restart anticoagulation now.
- It is unclear whether this is Eliquis failure versus hypoperfusion with hypotension due to severe bradycardia. Either way it would be safer to switch him to Pradaxa which is a thrombin inhibitor.
- Patient was scheduled for A-fib ablation on 09/28/2024
- With the identification of new small strokes, we will postpone the ablation for him to recover completely. Will plan for doing a A-fib ablation in 2 to 3 months.
- Oral Anticoagulation: Switch apixaban to dabigatran. 50 mg twice a day.
- [id number]: Score at least 5 (HTN, age, CVA)
Acute CVA
- Numerous foci and multiple areas of the brain identified on 09/22/2024
- Minimal deficit at the moment.
- Eliquis was held to avoid hemorrhagic transformation.
- Okay to resume anticoagulation as discussed with neurology.
- Will start dabigatran 150 twice a day.
Mechanical fall with associated weakness, per primary service
- Possible ongoing small stroke
Hypertension, may need to hold ramipril to allow for more rate control
Dyslipidemia, on simvastatin
Physical Exam
Vital Signs/Labs
Vital Signs
Temp Pulse Resp BP Pulse Ox
97.4 F 123 22 139/94 97
09/23/24 07:00 09/23/24 08:00 09/23/24 07:00 09/23/24 03:53 09/23/24 07:00
09/22/24 09/23/24 09/24/24
06:59 06:59 06:59
Actual Weight 91.9 kg 91.6 kg
09/21/24 16:57
09/23/24 03:57
Magnesium 2.1 mg/dl (1.6-2.3) 09/22/24 02:30
Triglycerides 169 mg/dl (10-149) H 09/23/24 03:57
LDL Cholesterol, Calc 130 mg/dl 09/23/24 03:57
VLDL Cholesterol, Calc 33 mg/dl (0-30) H 09/23/24 03:57
HDL Cholesterol 49 mg/dl 09/23/24 03:57
Physical Exam
Constitutional: No acute distress and Comfortable
EENT: Anicteric and Moist mucous membranes
Cardiovascular: Pedal edema is absent, JVD pressure is normal, Rhythm/rate is irregular and Systolic murmur present
Respiratory: Respiratory effort normal and Lungs clear to auscul.
GI: Soft and Normal bowel sounds
Neuro/Psych: Alert, Oriented and Other (Hard of hearing)
Data Reviewed
-
Date of Service: September 23, 2024
Medical Decision Making: Reviewed Test Results, Test Interpretation and Review of Case with other Provider
EKG: Tracing Personally Visualized and interpreted
Echo: Report Reviewed by me
X-Ray/CT/US/MRI/NUC/PET: Image Personally Visualized and interpreted and Report Reviewed by me
Medical Tests (PFT, Pathology etc): Discussed with Physician and Discussed with Patient
Labs: Labs Reviewed by me
Old Records: Reviewed
--- NOTE | 2024-09-23 09:43 | W.PN.NEURO.1 ---
Addendum entered and electronically signed by Mehdi May MD 09/23/24 10:54:
Studies reviewed.
I have personally examined the patient. I reviewed and agree with the OPEN HEARTH LABORER's Note.
My addenda:
Awake, alert, interactive. No acute distress.
Speech intact.
Follows 2-step requests w/o difficulty. No tremor.
Extra-ocular movements grossly intact.
Facial movements full and symmetric. Hearing intact to normal conversational volume.
Normal UE movements bilaterally.
Neck: full ROM.
Chest: no dyspnea
Heart: no JVD
Ext: (-) Clubbing, (-) Cyanosis, (-) Edema
IMPRESSIONS/RECOMMENDATIONS:
Abrupt onset of change in mental status, left-sided facial droop and MRI proven acute ischemic embolic stroke. Presumed that stroke is secondary to anticoagulant failure at this time. Patient has evidence of a left homonymous hemianopsia at this
time
Would restart anticoagulation at this time due to small sized and numerous strokes
Stop aspirin when anticoagulation is resumed
Increase atorvastatin dose to 80 mg due to elevated LDL
Eventual outpatient vascular surgery evaluation due to relative stenosis of the left ICA
Would restrict driving for the patient until and unless approved by Occupational Therapy
D/W patient
Will continue to follow as needed.
Original Note:
Documented by User: Nina Garcia NP 09/23/24 10:19
Today's Communication / Plan
-
.
Neuro Assessment/Plan
Assessment
The patient is a right-handed 83-year-old male with persistent atrial fibrillation (on sotalol and apixaban), dyslipidemia, hypertension, and pulmonary nodules who presented to the [facility] on 09/21/2024 with a chief complaint of weakness with an
associated fall now with dysarthria, left facial droop and left hemianopia. He was not a candidate for TNK/IAT due to apixaban usage and no LVO.
Head CT: No acute intracranial pathology. Mild ventricle sulcal prominence consistent with atrophy.
Head/Neck CTA: No acute vascular pathology. No M1 and M2 occlusion. Less than 50% right proximal internal carotid artery stenosis. 50-69% left proximal internal carotid artery stenosis. Severe multilevel degenerative disc disease. Stable.
MRI brain 09/22/24: There are numerous foci of restricted diffusion within the right frontal, parietal and occipital lobes as well as involving the posterior right insular cortex which are consistent with acute infarctions. There is no evidence of
hemorrhagic transformation.
I. Acute right frontal, parietal, and occipital embolic appearing ischemic infarcts. Etiology of stroke concerning for possible apixaban failure. Hypotension/bradycardia possibly playing a role; however, given L ICA stenosis, would expect infarcts
to also be in the left hemisphere if this was the primary etiology of stroke.
II. L ICA 50-70% stenosis, asymptomatic.
III. Afib.
IV. Hyperlipidemia.
Plan
-Okay to resume anticoagulation today.
-Once anticoagulation is resumed, stop aspirin.
-Goal normotension.
-Goal normoglycemia, hbA1c is 6.4.
-LDL goal is <70. LDL is 130. Home simvastatin 20mg changed/increased to atorvastatin 80mg daily.
-NIHSS and neurological checks per unit guidelines.
-Patient provided with a stroke education packet.
-PT/OT/ST evaluations
-DVT prophylaxis.
-Follow-up with Vascular surgery as an outpatient regarding L ICA stenosis.
-Patient should follow-up with Neurology as an outpatient.
Plan of care discussed with Dr. May, nurse, and patient; all questions encouraged and answered.
Subjective/Objective
Subjective Data
Date of Service: September 23, 2024
No acute events overnight. Patient reports that he is feeling improved today. He denies any headache, dizziness, vision changes, and speech/swallow difficulty.
Objective Data
Vital Signs
Temp Pulse Resp BP Pulse Ox
97.4 F 123 22 139/94 97
06/11/25 07:00 09/23/24 08:00 09/23/24 07:00 09/23/24 03:53 09/23/24 07:00
Lab Results
09/21/24 16:57
09/23/24 03:57
Sodium 139 mmol/L (135-145) 09/23/24 03:57
Potassium 4.7 mmol/L (3.5-5.1) 09/23/24 03:57
BUN 12 mg/dl (9-20) 09/23/24 03:57
Glucose 105 mg/dl (70-99) H 09/23/24 03:57
Calcium 9.7 mg/dl (8.4-10.2) 09/23/24 03:57
LDL Cholesterol, Calc 130 mg/dl 09/23/24 03:57
Patient Allergies
No Known Allergies Allergy (Verified 12/26/16 06:14)
LDL Level: >70, statin ordered
Review of Systems
-
History Source: Patient
EENT: Negative Decreased Vision or Swallowing Difficulty
Respiratory: Negative Cough or Trouble Breathing
Cardiac: Negative Chest Pain or Palpitations
Abdomen/GI: Negative Nausea
Neuro: Weakness and Numbness; Negative Dizzy, Headache or Speech Problem
Physical Exam
-
General: No Apparent Distress
Eyes: No Ptosis and PERRLA
HEENT: Normocephalic and Atraumatic
Neck: Full Range of Motion
Respiratory: No Dyspnea
GI: Non-distended
Psych: Unremarkable
Extended Neurological Exam
Mood & Affect: Mood Unremarkable and Affect Unremarkable
Attention Span & Concentration: Awake, Alert and Interactive
Memory: Unremarkable and Able to Recall
Tremor: Hand Tremor Absent and Head Tremor Absent
Involuntary Movement: None
Speech: Quantity Unremarkable and Dysarthric
Cranial Nerve II: Left Eye: Pupillary Reactivity Unremarkable, Pupillary Size Unremarkable and Visual Ruiz Reduced (left hemianopia)
Cranial Nerve II: Right Eye: Pupillary Reactivity Unremarkable, Pupillary Size Unremarkable and Visual Ruiz Reduced (left hemianopia)
Cranial Nerves III, IV, : Extraocular Movement: Extraocular Movement Full in all Directions
Cranial Nerve VII: Facial Symmetry: Normal Facial Symmetry
Cranial Nerve VIII: Hearing: Unremarkable Hearing to Normal Conversational Volume
Cranial Nerves IX, X: Palate Movement: Palate Elevation Symmetric
Cranial Nerve XI: Shoulder Shrug: Unremarkable
Cranial Nerve XII: Tongue Protusion: Midline
Muscle Strength, Overall: Full Throughout
Muscle Bulk & Tone: Bulk Unremarkable and Tone Unremarkable
Pronator Drift: No Drift in Upper Extremities and No Drift in Lower Extremities
Coordination: DONNA Satellites around Left
Modified Wendell Score (MRS)
-
Modified Wendell Scale (mRS): No significant disability. Able to carry out usual activities.
Score: 1
Data Reviewed
-
CT-A: Report Reviewed and Image Reviewed
CT-Perfusion: Report Reviewed and Image Reviewed
CT Head: Report Reviewed and Image Reviewed
MRI Head: Report Reviewed and Image Reviewed
Labs: Report Reviewed
Lipid Profile: Report Reviewed
HgbA1C: Report Reviewed
Reviewed with: Physician and Patient
Medications
-
Active Medications
Generic Name Dose Route Start Last Admin
Trade Name Freq PRN Reason Stop Dose Admin
Acetaminophen 650 mg 09/22/24 01:22
Acetaminophen 325 Mg Tablet PO 10/20/24 01:21
Q6HPRN PRN
mild pain/ fever>100.5F
Aspirin 81 mg 09/23/24 08:00 09/23/24 09:13
Aspirin 81 Mg (Enteric Coated) Tablet PO 09/25/24 07:59 81 mg
DAILY DEE DEE Administration
Atorvastatin Calcium 80 mg 09/23/24 18:00
Atorvastatin (Lipitor) 80 Mg Tablet PO 10/21/24 17:59
QPM DEE DEE
Brinzolamide/Brimonidine Tartrate 0 drop 09/22/24 18:00 09/23/24 09:14
Brinzolamide 1%/Brimonidine 0.2% (Ophth Susp) 8 Ml Bottle [facility] 10/20/24 17:59 1 drop
TID@0800,1200,1800 DEE DEE Administration
Dabigatran 150 mg 09/23/24 08:45 09/23/24 10:10
Dabigatran Etexilate (Pradaxa) 150 Mg Capsule PO 10/21/24 08:44 150 mg
BID DEE DEE Administration
Diltiazem HCl 125 mg in 125 mls @ 0 mls/hr 09/22/24 08:30 09/22/24 08:50
Cardizem IV 125 mls
On Hold: 09/22/24 12:44 PER PROTOCOL DEE DEE Administration
Protocol
Per Protocol
Latanoprost 0 drop 09/22/24 18:00 09/22/24 20:18
Latanoprost 0.005% (Ophthalmic Solution) 2.5 Ml Bottle [facility] 10/20/24 17:59 1 drop
QPM DEE DEE Administration
Metoprolol Tartrate 5 mg 09/22/24 01:22 09/22/24 06:13
Metoprolol 5 Mg/5 Ml Vial IV 10/20/24 01:21 5 mg
Q4HPRN PRN Administration
heart rate > 130,SBP > 100
Non-Formulary Item 1 0 unit 09/22/24 22:00 09/22/24 22:10
Unit Rhopressa 1 OPH 10/20/24 21:59 1 unit
Drop Both Eyes Hs HS DEE DEE Administration
Sodium Chloride 0 flush 09/21/24 22:00 09/23/24 09:14
Sodium Chloride 0.9% (Flush) Syringe IV 10/19/24 21:59 2 flush
PER PROTOCOL DEE DEE Administration
Sotalol HCl 80 mg 09/22/24 08:00 09/23/24 09:13
Sotalol 80 Mg Tablet PO 10/20/24 07:59 80 mg
BID DEE DEE Administration
Tamsulosin HCl 0.4 mg 09/23/24 08:00 09/23/24 09:14
Tamsulosin 0.4 Mg Capsule PO 10/21/24 07:59 0.4 mg
DAILY DEE DEE Administration
Home Medications
�Medication �Instructions �Recorded
apixaban 5 mg tablet (Eliquis) 5 mg PO BID 09/22/24
bimatoprost 0.01 % eye drops 1 drp ophthalmic (eye) QPM 09/22/24
(Lumigan)
brinzolamide 1 %-brimonidine 0.2 % 1 drp ophthalmic (eye) TID 09/22/24
eye drops,suspension (Simbrinza)
netarsudil 0.02 % eye drops 1 drp ophthalmic (eye) QPM 09/22/24
(Rhopressa)
ramipril 5 mg tablet 5 mg PO DAILY 09/22/24
simvastatin 20 mg tablet 20 mg PO QPM 09/22/24
sotalol 80 mg tablet 80 mg PO BID 09/22/24

Documented by User: Mehdi May MD 09/23/24 10:50
Modified Arnel Score (MRS)
-
Score: 1
[2024-09-23] MEDS: PRADAXA 150 MG PO ×2 (10:10→19:49)
--- NOTE | 2024-09-23 11:27 | CM ---
Reviewed chart. Met with and Mrs. Alvarez to review discharge plans. We reviewed the team recommendation for Acute Rehab. at [facility] [place]. They are agreeable to having a referral made to [facility] [place]. Telephone call
to [facility] [place] liaison to make the referral. Sent the referral. Prior to admission he resides with his significant other in a two story home without any steps to enter. He has a full flight of steps to get to bedroom/full bathroom.
Prior to admission he was independent with ambulation and adls. He does not have any DME in the home. He heas a prescription plan with [facility]. Medical work-up in progress. The discharge plan is to go to [facility] [place] if approved for
admission and bed available when medically stable.
--- NOTE | 2024-09-23 17:13 | PTCARENOTE ---
Patient took a nap and then assisted to the bathroom to attempt to move his bowels. Patient was able to void but did not have a bowel movement. Bright red blood noted dripping from his penis and when he stood up there was also blood in the toilet.
Patient states he may have strained a little and had some burning. Returned to the bed, bladder scanned for 101ml. No further bleeding now. TT to Dr. Sumner , will check UA.
[2024-09-23] MEDS: LIPITOR 80 MG PO (17:21)
[2024-09-23] MEDS: XALATAN OPHTHALMIC SOLUTION 1 DROP OPHTH (19:49)
[2024-09-23] MEDS: NON-FORMULARY ITEM 1 UNIT OPHTH (22:09)
--- NOTE | 2024-09-23 23:23 | PTCARENOTE ---
Received patient at change of shift. Afib on the monitor, HR in the 100s. NIHSS 2. Improved left facial droop and LUE ataxia. Still has inattention to his left side, but moves his LUE and LLE well with equal strength. Alert and oriented but
forgetful, bed alarm in place. No complaints from pt at this time, call giles within reach.
[2024-09-24] VITALS (23 sets, daily range): BP systolic 80–146; BP diastolic 54–102; PULSE 79–150; O2SAT 96; BMI 28.2
[2024-09-24 00:14] LABS: Urine Albumin 1+ (Neg - Trace); Urine Bilirubin Negative (Negative); Urine Character Clear (Clear); Urine Color Amber; Urine Glucose Negative (Negative); Urine Ketone Negative (Negative); Urine Leukocyte Negative (Negative); Urine Nitrite Negative (Negative); Urine Occult Blood 4+ (Negative); Urine Specific Gravity 1.015 (<1.030); Urine Urobilinogen Negative (Neg - 1+)
[2024-09-24 00:32] LABS: Urine Squamous Cell 0-2 /LPF (Few)
[2024-09-24 00:33] LABS: Urine White Cell None Seen /HPF (0-5)
[2024-09-24] MEDS: SIMBRINZA 1%-0.2% OPHTH SUSP 1 DROP OPHTH ×3 (07:58→17:10)
[2024-09-24] MEDS: FLOMAX 0.4 MG PO (08:01)
[2024-09-24] MEDS: PRADAXA 150 MG PO (08:01)
[2024-09-24] MEDS: BETAPACE 80 MG PO ×2 (08:01→20:24)
--- NOTE | 2024-09-24 09:00 | PTCARENOTE ---
Rec'd pt at handoff. Tele- Afib. NIHSS performed with outgoing nightshift RN. Score 3. Pt remains w/ L sided hemianopia, LUE sided ataxia and inattention to his left side but moves his LUE and LLE well with equal strength. Pt has no c/o
pain/discomfort this AM. Plan of care reviewed w/ pt and verbalizes understanding. Currently in bed; call tisha w/in reach.
--- NOTE | 2024-09-24 10:05 | W.PN.CD ---
Today's Communication / Plan
-
continue sotalol 80mg bid
discussed with EP: rate control until ablation, which will be in 2-3 months
-add diltiazem 120mg daily
-if develops tachy/yeison, will need PPM
Impression / Plan
-
I/P: 83M with persistent atrial fibrillation (on sotalol and apixaban), dyslipidemia, hypertension, and pulmonary nodules who presented to the emergency department with a chief complaint of weakness with an associated fall.
Primary assistant fitness manager: Dr. Myers
EP: Dr. Lake
Persistent atrial fibrillation, now with RVR, and new CVA
- Brain MRI on 09/22/2024 showed numerous foci of restricted diffusion within the right frontal, parietal and occipital lobes involving posterior right insular cortex with acute infarctions. This could be consistent with emboli versus episodes of
hypoperfusion. Patient reports that he has been compliant with Eliquis.
- Eliquis was held to avoid any hemorrhagic transformation. Case was discussed with neurology.
- Neurology is willing to restart anticoagulation now.
- It is unclear whether this is Eliquis failure versus hypoperfusion with hypotension due to severe bradycardia. Either way it would be safer to switch him to Pradaxa which is a thrombin inhibitor.
- With the identification of new small strokes, we will postpone the ablation (originally scheduled for next week) for him to recover completely. Will plan for doing a A-fib ablation in 2 to 3 months.
- Oral Anticoagulation: Switch apixaban to dabigatran 150 mg twice a day.
- [id number]: Score at least 5 (HTN, age, CVA)
-continue sotalol 80mg bid
-discussed with EP: rate control until ablation, which will be in 2-3 month
-add diltiazem 120mg daily
-if develops tachy/yeison, will need PPM
Acute CVA
- Numerous foci and multiple areas of the brain identified on 09/22/2024
- Minimal deficit at the moment.
- Eliquis was held to avoid hemorrhagic transformation.
- Okay to resume anticoagulation as discussed with neurology.
- OAC changed to dabigatran 150 twice a day.
Hypertension, may need to hold ramipril to allow for more rate control
Dyslipidemia, on simvastatin
Physical Exam
Vital Signs/Labs
Vital Signs
Temp Pulse Resp BP Pulse Ox
98 F 102 20 136/93 97
09/24/24 07:46 09/24/24 08:01 09/24/24 07:46 09/24/24 08:01 09/24/24 07:47
09/23/24 09/24/24 09/25/24
06:59 06:59 06:59
Actual Weight 91.6 kg 91.7 kg
09/21/24 16:57
09/23/24 03:57
Magnesium 2.1 mg/dl (1.6-2.3) 09/22/24 02:30
Triglycerides 169 mg/dl (10-149) H 09/23/24 03:57
LDL Cholesterol, Calc 130 mg/dl 09/23/24 03:57
VLDL Cholesterol, Calc 33 mg/dl (0-30) H 09/23/24 03:57
HDL Cholesterol 49 mg/dl 09/23/24 03:57
Physical Exam
Constitutional: No acute distress and Comfortable
EENT: Moist mucous membranes
Cardiovascular: Pedal edema is absent, JVD pressure is normal, Systolic murmur absent and Rhythm/rate is irregular
Respiratory: Respiratory effort normal and Lungs clear to auscul.
Neuro/Psych: AO x 3
Data Reviewed
-
Date of Service: September 24, 2024
EKG: Other (Tele: A fib 90s at rest, but up to 130s with any movement)
Labs: Labs Reviewed by me
--- NOTE | 2024-09-24 11:12 | PN.CDI ---
CDI
- -
CDI:
Physician Documentation Request
Admit Date: 09/23/24 09:04
Dear Doctor Taisha,
Clinical Indicators:
Patient admitted with atrial fibrillation.
09/22 Cardiology consult, '...persistent atrial fibrillation (on sotalol and apixaban)...Patient is scheduled for atrial fibrillation ablation on 09/28/2024...'
09/23 PN, 'Paroxysmal atrial fibrillation -with RVR.'
Due to potentially conflicting documentation, please clarify the type of atrial fibrillation:
Persistent atrial fibrillation - episodes of continuous AF that last more than 7 days and do not self-terminate
Paroxysmal atrial fibrillation - terminates spontaneously or with intervention within 7 days of onset
Other - please specify
Use of terms such as suspected, likely, concern for, or probable (associated with a specific diagnosis that is being evaluated, monitored, or treated as if it exists) are acceptable and can be coded in the inpatient setting, when documented at the
time of discharge.
Thank you,
МАРИЯ Lyn RN
CDI Specialist
available via tiger text
Please use your independent medical judgment in providing your response.
[2024-09-24] MEDS: CARDIZEM CD 120 MG PO (11:47)
--- NOTE | 2024-09-24 12:43 | W.PN.HOSP.TC ---
Addendum entered and electronically signed by Jone Sumner DO 09/24/24 13:07:
Correction: persistent atrial fibrillation
Original Note:
Today's Communication/Plan
-
Continue current care
Assessment / Plan
Assessment / Plan
Gen-AAOx3, NAD
HEENT-NC, AT, anicteric, clear oral mm
Neck-supple
CV-reg, no M, +S1/S2
Lungs-clear B/L
Abd-soft, NT, ND
Ext-no edema
Musculoskeletal-no cyanosis, clubbing
Skin-warm and dry
Neuro-grossly non-focal
Psych-calm, cooperative
Acute strokes -presumably embolic given distribution on MRI, right frontal, parietal, occipital lobes, as well as posterior right insular cortex.
Timing of stroke suspicious for hemodynamic influence given onset 2 hours after IV Cardizem morning of September 22. Nursing noted fairly rapid drop in heart rate and blood pressure after Cardizem administration. He never received IV Cardizem infusion,
only got the bolus dose.
Patient feels back to baseline, no significant neurologic deficits on exam.
CTA head and neck shows no acute vascular pathology. No M1/M2 occlusion. Less than 50% right proximal ICA stenosis, 50 to 69% left proximal ICA stenosis. Severe multilevel degenerative disc disease.
Carotid ultrasound shows less than 50% bilateral carotid stenosis.
PT/OT consulted. No issues with swallowing.
Paroxysmal atrial fibrillation -with RVR. Presented with symptoms of generalized weakness and fall.
Rates remain fast today. Currently on sotalol and Eliquis. Cardiology contemplating eventual rhythm control with ablation in a few months.
TSH 2.0.
Diltiazem CD1 120 mg daily started today.
Eliquis changed to Pradaxa for presumed Eliquis failure.
Essential hypertension with hypertensive urgency -urgency resolved. Ramipril on hold for relative hypotension.
Impaired fasting glucose -hemoglobin A1c 6.4%. Weight loss should help.
Hyperlipidemia -on simvastatin at home, currently on atorvastatin.
Nursing notes urinary frequency and need to stand to urinate. Bladder scan without significant residual volume. Urinalysis negative. Continue Flomax.
Full code
Dispo -PT recommending acute rehab. Physiatry consulted. Case management aware.
Once heart rate is adequately controlled, can discharge to rehab.
Updated patient's son at the bedside.
Anticipated Discharge: 24 - 48 hours
Subjective/Interval History
-
Date of Service: September 24, 2024
Patient seen and examined. No new complaints.
Objective Data
-
Vital Signs:
Vital Signs
Temp Pulse Resp BP Pulse Ox
97.2 F 111 20 102/78 98
09/24/24 11:34 09/24/24 11:47 09/24/24 11:34 09/24/24 11:47 09/24/24 11:34
I&O
09/23/24 09/24/24 09/25/24
06:59 06:59 06:59
Intake Total 1480 / 1480 760 / 760 400 / 400
Output Total 2300 / 2300 50 / 50
Balance -820 / -820 710 / 710 400 / 400
Review of Systems
-
History Source: Patient
All other systems: Reviewed and negative
--- NOTE | 2024-09-24 15:00 | CON.MD ---
Documented by User: Ria Hall PA-C 09/24/24 15:37
Consultation - Medical
-
Referring Provider:�
Chief Complaint:�cva
�
History of Present Illness:�Patient is an 83-year-old male with PMH of ( hyperlipidemia, paroxysmal atrial fibrillation on anticoagulation, hypertension, GERD) who presented to the emergency department with weakness and fall at home. Had loss of
balance. Denies lose of consciousness. While in the ED, noted to be in A-fib with RVR in the 160s, blood pressure 150/90, respirate rate 14 and temperature of 97.4 , pulse ox 100% on room air. ECG showed atrial fibrillation with RVR of 139.
No acute ST or T wave changes. CT of the head which was negative for any acute intracranial bleed. CT of the neck was negative for fracture or dislocation or subluxation. Patient was admitted to IVU on 09/21 and on 09/22 in the morning nursing
discovered patient with left facial drooping, left-sided weakness, rapid response was stroke alert was called.
MRI of Brain , right frontal, parietal, occipital lobes, as well as posterior right insular cortex. not a TNK candidate due to receiving anticoagulation
Evaluation by neurology for abrupt onset of change in mental status, left-sided facial droop with MRI proven acute ischemic embolic stroke. Presumed that stroke is secondary to anticoagulation failure. Patient has left homonymous hemianopsia.
Eliquis was held to avoid hemorrhagic transformation. Recommended resuming anticoagulation due to small size and numerous strokes. Aspirin to be stopped once anticoagulation is resumed. Goal is to increase atorvastatin to 80 mg due to elevated
LDL. Recommended outpatient vascular evaluation for surgery due to relative stenosis of the left ICA. Strict and driving for the patient until and unless approved by Occupational Therapy
Paroxysmal atrial fibrillation - Rates remain fast today. Was on sotalol and Eliquis. Cardiology contemplating eventual rhythm control with ablation in 2-3 months. Diltiazem 120mg daily added with plan for PPM if develops tachy/bradycardia. Per
cardio: It is unclear whether this is Eliquis failure versus hypoperfusion with hypotension due to severe bradycardia. Either way it would be safer to switch him to Pradaxa which is a thrombin inhibitor.
With the identification of new small strokes, decision was made to postpone the ablation (originally scheduled for next week) for him to recover completely. Will plan for doing a A-fib ablation in 2 to 3 months.
Eliquis changed to Pradaxa for presumed Eliquis failure. Essential hypertension with hypertensive urgency -urgency resolved. Ramipril on hold for relative hypotension and t allow more rate control.
Primary nylon machine operator: Dr. Myers
EP: Dr. Lake
Past Medical History:�Paroxysmal atrial fibrillation, hypertension, GERD, hyperlipidemia, h/o LBP. right knee
Procedure History:�Hiatal hernia repair, Mohs surgery. Right knee surgery
Family History:�Dad - CVA- did not go to doctors, denies other medical issues for family
�
Social History:�
Functional Level Premorbidly:�Independent with all activities�
Functional Level Currently:�Bed mobility�supervision, ambulate 30 feet time 1, 50 feet time 1 with no device close supervision, min assist for 1 loss of balance when turning quickly, standing rest needed during ambulation due to elevated heart rate
to 150s, dynamic standing fair, forward/backward walk x 10 feet with contact-guard, sidesteps x 10 feet each direction close supervision, elevated HR with ambulation, eating�set up, lower extremity care�supervision,
�
Tobacco:�Denies�
Alcohol:�Denies�
Drug use:�Denies�
�
Lives with:�Family
24-hour assistance available:�
Number of floors:�Multilevel
# steps to enter:2�
# steps to second floor:FF
Potential First floor set up:�
Driving:�Yes
Occupation:�Retired, enjoyed golfing, water skiing in his youth
�
�
Allergies:�
Allergy/AdvReac Type Severity Reaction Status Date / Time
No Known Allergies Allergy Verified 12/26/16 06:14
�
Review of Systems:�
Constitutional: (x) Normal _
Eye: (x) Normal _
Ear/Nose/Throat: (x) abNormal _hard of hearing
Respiratory: (x) Normal _
Cardiovascular: (x) abNormal _paroxysmal A-fib with RVR
Gastrointestinal: (x) Normal _
Genitourinary: (x) Normal _
Musculoskeletal: (x) Normal _
Integumentary: (x) Normal _
Neurologic: (x) abNormal _cva
Psychiatric: (x) Normal _
Endocrine: (x) Normal _
Hematologic/Lymphatic: (x) Normal _
Allergic/Immunologic: (x) Normal _
�
Medications:�
Active Current Visit Medication List
Category Date Time Status
Acetaminophen [Tylenol] Med 09/22/24 01:22 Active
650 mg PO Q6HPRN PRN
Atorvastatin [Lipitor] Med 09/23/24 18:00 Active
80 mg PO QPM
Brinzolamide/Brimonidine Tart [Simbrinza 1%-0.2% Oph Med 09/22/24 18:00 Active
Susp]
See Dose Instructions [facility] TID@0800,1200,1800
Dabigatran Etexilate Mesylate [Pradaxa] Med 09/23/24 08:45 Active
150 mg PO BID
Diltiazem 125 mg/125 ml Nss [Cardizem] Med 09/22/24 08:30 Hold
125 mg in 125 ml IV PER PROTOCOL
Flush (0.9% Sodium Chloride) [Flush (Nss)] Med 09/21/24 22:00 Active
See Dose Instructions IV PER PROTOCOL
Latanoprost [Xalatan Ophthalmic Solution] Med 09/22/24 18:00 Active
See Dose Instructions [facility] QPM
Metoprolol [Lopressor] Med 09/22/24 01:22 Active
5 mg IV Q4HPRN PRN
Non-Formulary Item Med 09/22/24 22:00 Active
See Dose Instructions [facility] HS
Sotalol [Betapace] Med 09/22/24 08:00 Active
80 mg PO BID
Tamsulosin [Flomax] Med 09/23/24 08:00 Active
0.4 mg PO DAILY
�
Vitals:�
Temp Pulse Resp BP Pulse Ox
97.2 F 111 20 102/78 98
09/24/24 11:34 09/24/24 11:47 09/24/24 11:34 09/24/24 11:47 09/24/24 11:34
Height 5 ft 11 in
Actual Weight 91.7 kg
Body Mass Index (BMI) 28.2
�
Physical Exam:�
General Appearance/Observation: Well-developed, well-nourished individual in no apparent distress.�
Pain/Comfort Assessment: Occasional right knee pain
Mood/Affect: Appropriate�
�
Integumentary/Operative Site:�
�� Pressure Ulcer Evaluation: absent over heels.�
�
�� Other Type of Wound: absent�
��
Eyes: Conjunctiva/Lids: normal���� Pupils: pupils equal round and reactive to light and Accommodation�
Ears/Nose/Throat: oral mucosa moist,� throat clear.������������ Lips/Teeth/Gums: normal�
Neck: No muscle spasm or tenderness�
Cardiovascular: Heart: tachy, no murmur�
Pulses: dorsalis pedis 1+ bilaterally�
Respiratory: Respiratory Effort/Chest Expansion: normal������� Auscultation: Clear to auscultation bilaterally�
Gastrointestinal: abdomen not tender, no distension, obese, normal abdominal bowel sounds
Genitourinary: No Lozada�
Extremities:�Edema: None�Cyanosis: None�Trophic�changes: None
�
Neurology Exam:
Orientation: Alert, Oriented to self, Time, Place�
Memory: Intact for immediate medical concern
Comprehension: Intact
Two step command: Intact
Naming: Intact
Cranial Nerves:
�� CNII:�Pupillary light reflex: Intact����Visual Field: right impairment
�� CN III, IV, : Extraocular muscles: Intact�
�� CN V:�Facial Sensation�at�Forehead: Intact,�Maxilla: Intact,�Mandible: Intact
�� CN VII:�Facial movement: Symmetric
�� CN VIII:�Hearing: Normal
�� CN IX/X:�Speech & swallow: Normal,�Position of Uvula: Midline
�� CN XI:�Shoulder shrug: Symmetric
�� CN XII:�Tongue protrusion: Midline -
Sensory:
�� Light touch: Intact in bilateral upper and lower extremities
��
Reflexes:
�� Biceps: 1/4+ bilaterally
�� Brachioradialis: 1/4+ bilaterally
�� Triceps: 1+ bilaterally
�� Patellar: 1/4 bilaterally
�� Achilles: Absent bilaterally
�� Babinski: Down going bilaterally
�� Clonus: None
�� Tonie: Negative bilaterally�
Cerebellar: Dysmetria/Ataxia: None�
Musculoskeletal:
Motor: (Manual muscle scale 0-5)�
Muscle SA EF WE EE FF FA HF KE DF EHL PF
Right� 5 5 5 5 5 5 5 5 5 5 5
Left 5 5 5 5 5 5 5 5 5 5 5
�
Tone: Normal in all extremities�
Range of Motion: Passively within normal limits in all extremities�
�
Lab Results
Labs
WBC 8.4 10^3/uL (4.8-10.8) 09/21/24 16:57
RBC 5.57 10^6/uL (4.70-6.10) 09/21/24 16:57
Hgb 15.7 g/dL (13.0-18.0) 09/21/24 16:57
Hct 47.9 % (39.0-52.0) 09/21/24 16:57
MCV 86.0 fL (80.0-94.0) 09/21/24 16:57
MCH 28.2 pg (27.0-31.0) 09/21/24 16:57
MCHC 32.8 g/dL (33.0-37.0) L 09/21/24 16:57
RDW 14.6 % (11.5-14.5) H 09/21/24 16:57
Plt Count 161 10^3/uL (130-400) 09/21/24 16:57
MPV 11.4 fL (7.4-10.4) H 09/21/24 16:57
Abs Immat Gran (auto) 0.0 10^3/uL (0-0.05) 09/21/24 16:57
Absolute Neuts (auto) 5.5 10^3/uL (1.4-6.5) 09/21/24 16:57
Absolute Lymphs (auto) 2.0 10^3/uL (1.2-3.4) 09/21/24 16:57
Absolute Monos (auto) 0.7 10^3/uL (0.1-0.6) H 09/21/24 16:57
Absolute Eos (auto) 0.2 10^3/uL (0-0.7) 09/21/24 16:57
Absolute Basos (auto) 0.0 10^3/uL (0-0.2) 09/21/24 16:57
Immature Gran % 0.4 % (0-0.5) 09/21/24 16:57
Neutrophils % 64.8 % (42.2-75.2) 09/21/24 16:57
Lymphocytes % 23.5 % (20.5-51.1) 09/21/24 16:57
Monocytes % 8.4 % (1.7-9.3) 09/21/24 16:57
Eosinophils % 2.5 % (0-6) 09/21/24 16:57
Basophils % 0.4 % (0-2) 09/21/24 16:57
Nucleated RBC % 0 % (-) 09/21/24 16:57
Sodium 139 mmol/L (135-145) 09/23/24 03:57
Potassium 4.7 mmol/L (3.5-5.1) 09/23/24 03:57
Chloride 111 mmol/L (98-107) H 09/23/24 03:57
Carbon Dioxide 21 mmol/L (22-30) L 09/23/24 03:57
BUN 12 mg/dl (9-20) 09/23/24 03:57
Creatinine 0.8 mg/dL (0.7-1.3) 09/23/24 03:57
Estimated Creat Clear 73 ml/min 09/23/24 03:57
eGFR > 60.00 09/23/24 03:57
Glucose 105 mg/dl (70-99) H 09/23/24 03:57
Hemoglobin A1c 6.4 % (4.0-5.6) H 09/23/24 03:57
Calcium 9.7 mg/dl (8.4-10.2) 09/23/24 03:57
Magnesium 2.1 mg/dl (1.6-2.3) 09/22/24 02:30
Total Bilirubin 0.9 mg/dl (0.2-1.3) 09/21/24 16:57
AST 25 U/L (17-59) 09/21/24 16:57
ALT 21 U/L (0-50) 09/21/24 16:57
Alkaline Phosphatase 66 U/L (38-126) 09/21/24 16:57
Total Protein 7.2 g/dl (6.3-8.2) 09/21/24 16:57
Albumin 4.2 g/dl (3.5-5.0) 09/21/24 16:57
Triglycerides 169 mg/dl (10-149) H 09/23/24 03:57
Total Cholesterol 212 mg/dl (50-199) H 09/23/24 03:57
LDL Cholesterol, Calc 130 mg/dl 09/23/24 03:57
VLDL Cholesterol, Calc 33 mg/dl (0-30) H 09/23/24 03:57
HDL Cholesterol 49 mg/dl 09/23/24 03:57
TSH (Reflex) 2.06 uIU/ml (0.47-4.68) 09/22/24 02:31
Urine Color Luh 09/23/24 23:55
Urine Clarity Clear (Clear) 09/23/24 23:55
Urine pH 6.0 (5.0-9.0) 09/23/24 23:55
Ur Specific [place] 1.015 (<1.030) 09/23/24 23:55
Urine Ketones Negative (Negative) 09/23/24 23:55
Urine Occult Blood 4+ (Negative) A 09/23/24 23:55
Ur Occult Blood Reflex Negative (Negative) 09/22/24 02:31
Urine Nitrite Negative (Negative) 09/23/24 23:55
Urine Nitrite (Reflex) Negative (Negative) 09/22/24 02:31
Urine Bilirubin Negative (Negative) 09/23/24 23:55
Urine Urobilinogen Negative (Neg - 1+) 09/23/24 23:55
Ur Leukocyte Esterase Negative (Negative) 09/23/24 23:55
Leukocyte Esterase Rfl Negative (Negative) 09/22/24 02:31
Urine RBC 7-10 /HPF (0-2) A 09/23/24 23:55
Urine WBC None seen /HPF (0-5) 09/23/24 23:55
Ur Squamous Epith Cells 0-2 /LPF (Few) 09/23/24 23:55
Urine Glucose Negative (Negative) 09/23/24 23:55
Urine Albumin 1+ (Neg - Trace) A 09/23/24 23:55
Urine Albumin (Reflex) Negative (Neg - Trace) 09/22/24 02:31
POC Glucose 120 mg/dl (70-99) H 09/22/24 09:52
�
Diagnostic Results:�as per HPI�
MRI Brain - 09/22/2024
Scattered T2/FLAIR hyperintensities within the subcortical and periventricular white matter of the bilateral cerebral hemispheres which is nonspecific, however likely sequelae of mild small vessel ischemic disease. Moderate global parenchymal volume
loss. Small focus of encephalization within the right cerebellar hemisphere.
There is no mass or mass effect, or extra-axial fluid collection.
There is prominence of the ventricular system which is likely due to adjacent central volume loss.
Flow voids of the larger intracranial vessels are present.
Paranasal sinuses and mastoid air cells are predominantly clear.
Marrow signal pattern is within normal limits.
IMPRESSION:
There are numerous foci of restricted diffusion within the right frontal, parietal and occipital lobes as well as involving the posterior right insular cortex which are consistent with acute infarctions. There is no evidence of hemorrhagic
transformation.
Carotid ultrasound-09/23/24
�IMPRESSION:
1. Right carotid: Mixed carotid bulb and internal carotid artery plaque. Based on velocity parameters, any internal carotid artery stenosis is less than 50%.
2. Left carotid: Calcified carotid bulb plaque. Based on velocity parameters any carotid artery stenosis is less than 50%.
3. Antegrade flow right vertebral artery. Unable to visualize left vertebral artery.
CT head and neck angio with/WO constrast
FINDINGS: There is no M1 and M2 occlusion. There is no carotid dissection. There is less than 50% right proximal internal carotid artery stenosis due to calcified plaque. There is 50-69% to left proximal internal carotid artery stenosis due to
calcified plaque. There is mild calcified plaque in the carotid siphon bilaterally.
The posterior circulation is intact.
Enhanced brain parenchyma is unremarkable.
No significant lymphadenopathy is noted. The salivary glands are within normal limits.
The airway is unremarkable. Thyroid gland is normal limits. The imaged lungs show mild posterior right upper lobe atelectasis versus scarring.
The osseous structures show severe multilevel degenerative disc disease throughout the cervical spine. All levels show severe narrowing except for C4/C5 which shows moderate narrowing. Prevertebral soft tissues appear normal.
IMPRESSION: No acute vascular pathology. No M1 and M2 occlusion.
Less than 50% right proximal internal carotid artery stenosis. 50-69% left proximal internal carotid artery stenosis.
Severe multilevel degenerative disc disease. Stable.
Assessment: 83-year-old male with acute right frontal, parietal, occipital and posterior right insular cortex
�
Plan�
PM&R�PT/OT to increase independence with ADLs, improve balance, coordination, endurance, strength, mobility, community reintegration, decreased burden of care on others and family education.�
�
CVA:right frontal, parietal and occipital lobes as well as involving the posterior right insular cortex. Pradaxa 150 twice daily, statin, and blood pressure control (SBP less than 180 and diastolic less than 100 to participate with therapy for
ischemic stroke). Continue to monitor neurologic status.�
Dysarthria: mild- patient says exacerbated by dry mouth. speech evaluation�
HTN: Metoprolol 5 mg IV every 4 as needed, diltiazem 120 daily sotalol 80 mg twice daily,
HLD: Atorvastatin 80 every afternoon
Paroxysmal atrial fibrillation:�Eliquis 5 mg twice daily switched to Pradaxa 150 twice daily and sotalol 80 mg twice daily, diltiazem 120 daily, rate control medications. Plan for ablation in 2-3 months������������������������������������������
Glaucoma: Latanoprost, Simbrinza, Rhopressa 1 drop both eyes at bedtime
Psych: Psychology consult.� Monitor mood, adjust medications as needed.�
Skin: monitor for pressure sores/rashes/lesions.�
Pain: acetaminophen as needed.�
Bowel/constipation: Last BM- 5 days ago. Added Colace and Senna, PRN bisacodyl.�
Bladder/BPH: Flomax 0.4 daily . Would recommend switching to bedtime to prevent drop in blood pressure time. void, PVRs, PRN straight cath.�
GI Prophylaxis: Pantoprazole�
DVT Prophylaxis: Mechanical and Pradaxa 150 twice daily
Pulmonary: Incentive spirometry�
Safety: Continue to reinforce assistance with all transfers.�
Code Status:� Full code
Dispo�(date/plan/equipment needs): Home with family care.� Social history reviewed.�
�
Functional and Medical Goals:�Modified Independent with ADL�s, ambulation, transfers�
�
Discharge Destination:�Home�with outpatient therapy
�
Summary of recommendations: Would benefit from acute inpatient rehabilitation for PT/OT/speech , however, patient's preference is to go home and do outpatient therapy as he is progressing well and wants to be within his own environment. Patient's
partner was not available for discussion in the room
CA:right frontal, parietal and occipital lobes as well as involving the posterior right insular cortex. Pradaxa 150 twice daily, statin, and blood pressure control (SBP less than 180 and diastolic less than 100 to participate with therapy for
ischemic stroke). Continue to monitor neurologic status.�
HTN: Metoprolol 5 mg IV every 4 as needed, diltiazem 120 daily sotalol 80 mg twice daily-blood pressure must be controlled upon discharge on oral medications only
Paroxysmal atrial fibrillation:�Eliquis 5 mg twice daily switched to Pradaxa 150 twice daily and sotalol 80 mg twice daily, diltiazem 120 daily, rate control medications. Plan for ablation in 2-3 months�������
Bowel/constipation: Last BM- 5 days ago. Recommending Colace and Senna, PRN bisacodyl.�
Bladder/BPH: Flomax 0.4 daily . Would recommend switching timing of Flomax to HS to prevent drop in blood pressure void, PVRs, PRN straight cath.�
DVT Prophylaxis: Mechanical and Pradaxa 150 twice daily
Pulmonary: Incentive spirometry�
�
�
Thank you for allowing me to care for your patient. Please contact me with any questions or concerns.

Documented by User: Alexis Henry MD 09/24/24 22:50
Consultation - Medical
-
Chief Complaint:�Stroke
�
History of Present Illness:�Patient is an 83-year-old right-handed male with PMH of ( hyperlipidemia, paroxysmal atrial fibrillation on anticoagulation, hypertension, GERD) who presented to the emergency department with weakness and fall at home.
Had loss of balance. Denies lose of consciousness. While in the ED, noted to be in A-fib with RVR in the 160s, blood pressure 150/90, respirate rate 14 and temperature of 97.4 , pulse ox 100% on room air. ECG showed atrial fibrillation with RVR
of 139. No acute ST or T wave changes. CT of the head which was negative for any acute intracranial bleed. CT of the neck was negative for fracture or dislocation or subluxation. Patient was admitted to IVU on 09/21 and on 09/22 in the morning
nursing discovered patient with left facial drooping, left-sided weakness, rapid response was stroke alert was called.
MRI of Brain , right frontal, parietal, occipital lobes, as well as posterior right insular cortex. not a TNK candidate due to receiving anticoagulation
Evaluation by neurology for abrupt onset of change in mental status, left-sided facial droop with MRI proven acute ischemic embolic stroke. Presumed that stroke is secondary to anticoagulation failure. Patient has left homonymous hemianopsia.
Eliquis was held to avoid hemorrhagic transformation. Recommended resuming anticoagulation due to small size and numerous strokes. Aspirin to be stopped once anticoagulation is resumed. Goal is to increase atorvastatin to 80 mg due to elevated
LDL. Recommended outpatient vascular evaluation for surgery due to relative stenosis of the left ICA. Strict and driving for the patient until and unless approved by Occupational Therapy
Paroxysmal atrial fibrillation - Rates remain fast today. Was on sotalol and Eliquis. Cardiology contemplating eventual rhythm control with ablation in 2-3 months. Diltiazem 120mg daily added with plan for PPM if develops tachy/bradycardia. Per
cardio: It is unclear whether this is Eliquis failure versus hypoperfusion with hypotension due to severe bradycardia. Either way it would be safer to switch him to Pradaxa which is a thrombin inhibitor.
With the identification of new small strokes, decision was made to postpone the ablation (originally scheduled for next week) for him to recover completely. Will plan for doing a A-fib ablation in 2 to 3 months.
Eliquis changed to Pradaxa for presumed Eliquis failure. Essential hypertension with hypertensive urgency -urgency resolved. Ramipril on hold for relative hypotension and t allow more rate control.
Primary nylon machine operator: Dr. Myers
EP: Dr. Lake
Past Medical History:�Paroxysmal atrial fibrillation, hypertension, GERD, hyperlipidemia, h/o LBP. right knee
Procedure History:�Hiatal hernia repair, Mohs surgery. Right knee surgery
Family History:�Dad - CVA- did not go to doctors, denies other medical issues for family
�
Social History:�
Functional Level Premorbidly:�Independent with all activities�
Functional Level Currently:�Bed mobility�supervision, ambulate 30 feet time 1, 50 feet time 1 with no device close supervision, min assist for 1 loss of balance when turning quickly, standing rest needed during ambulation due to elevated heart rate
to 150s, dynamic standing fair, forward/backward walk x 10 feet with contact-guard, sidesteps x 10 feet each direction close supervision, elevated HR with ambulation, eating�set up, lower extremity care�supervision,
�
Tobacco:�Denies�
Alcohol:�Denies�
Drug use:�Denies�
�
Lives with:�Family
24-hour assistance available:�Yes
Number of floors:�Multilevel
# steps to enter:2�
# steps to second floor: Full flight
Potential First floor set up:�Possibly
Driving:�Yes
Occupation:�Retired, enjoyed golfing, water skiing in his youth
�
�
Allergies:�
Allergy/AdvReac Type Severity Reaction Status Date / Time
No Known Allergies Allergy Verified 12/26/16 06:14
�
Review of Systems:�
Constitutional: (x) Normal _
Eye: (x) Normal _
Ear/Nose/Throat: (x) abNormal _hard of hearing
Respiratory: (x) Normal _
Cardiovascular: (x) abNormal _paroxysmal A-fib with RVR
Gastrointestinal: (x) Normal _
Genitourinary: (x) Normal _
Musculoskeletal: (x) Normal _
Integumentary: (x) Normal _
Neurologic: (x) abNormal _cva
Psychiatric: (x) Normal _
Endocrine: (x) Normal _
Hematologic/Lymphatic: (x) Normal _
Allergic/Immunologic: (x) Normal _
�
Medications:�
Active Current Visit Medication List
Category Date Time Status
Acetaminophen [Tylenol] Med 09/22/24 01:22 Active
650 mg PO Q6HPRN PRN
Atorvastatin [Lipitor] Med 09/23/24 18:00 Active
80 mg PO QPM
Brinzolamide/Brimonidine Tart [Simbrinza 1%-0.2% [facility] Med 09/22/24 18:00 Active
Susp]
See Dose Instructions [facility] TID@0800,1200,1800
Dabigatran Etexilate Mesylate [Pradaxa] Med 09/23/24 08:45 Active
150 mg PO BID
Diltiazem 125 mg/125 ml Nss [Cardizem] Med 09/22/24 08:30 Hold
125 mg in 125 ml IV PER PROTOCOL
Flush (0.9% Sodium Chloride) [Flush (Nss)] Med 09/21/24 22:00 Active
See Dose Instructions IV PER PROTOCOL
Latanoprost [Xalatan Ophthalmic Solution] Med 09/22/24 18:00 Active
See Dose Instructions [facility] QPM
Metoprolol [Lopressor] Med 09/22/24 01:22 Active
5 mg IV Q4HPRN PRN
Non-Formulary Item Med 09/22/24 22:00 Active
See Dose Instructions [facility] HS
Sotalol [Betapace] Med 09/22/24 08:00 Active
80 mg PO BID
Tamsulosin [Flomax] Med 09/23/24 08:00 Active
0.4 mg PO DAILY
�
Vitals:�
Temp Pulse Resp BP Pulse Ox
97.2 F 111 20 102/78 98
09/24/24 11:34 09/24/24 11:47 09/24/24 11:34 09/24/24 11:47 09/24/24 11:34
Height 5 ft 11 in
Actual Weight 91.7 kg
Body Mass Index (BMI) 28.2
�
Physical Exam:�
General Appearance/Observation: Well-developed, well-nourished male in no apparent distress.�
Pain/Comfort Assessment: Occasional right knee pain
Mood/Affect: Appropriate�
�
Integumentary/Operative Site:�
�� Pressure Ulcer Evaluation: absent over heels.�
��
Eyes: Conjunctiva/Lids: normal���� Pupils: pupils equal round and reactive to light and Accommodation�
Ears/Nose/Throat: oral mucosa moist,� throat clear.������������ Lips/Teeth/Gums: normal�
Neck: No muscle spasm or tenderness�
Cardiovascular: Heart: tachy, no murmur�
Pulses: dorsalis pedis 1+ bilaterally�
Respiratory: Respiratory Effort/Chest Expansion: normal������� Auscultation: Clear to auscultation bilaterally�
Gastrointestinal: abdomen not tender, no distension, obese, normal abdominal bowel sounds
Genitourinary: No Lozada�
Extremities:�Edema: None�Cyanosis: None�Trophic�changes: None
�
Neurology Exam:
Orientation: Alert, Oriented to self, Time, Place�
Memory: Intact for immediate medical concern
Comprehension: Intact
Two step command: Intact
Naming: Intact
Cranial Nerves:
�� CNII:�Pupillary light reflex: Intact����Visual Field: right impairment at times, varied with attention
�� CN III, IV, : Extraocular muscles: Intact�
�� CN V:�Facial Sensation�at�Forehead: Intact,�Maxilla: Intact,�Mandible: Intact
�� CN VII:�Facial movement: Symmetric
�� CN VIII:�Hearing: Normal
�� CN IX/X:�Speech & swallow: Normal,�Position of Uvula: Midline
�� CN XI:�Shoulder shrug: Symmetric
�� CN XII:�Tongue protrusion: Midline -
Sensory:
�� Light touch: Intact in bilateral upper and lower extremities, sometimes extinction to double simultaneous stimulation depending on attention
��
Reflexes:
�� Biceps: 2+ bilaterally
�� Brachioradialis: 2+ bilaterally
�� Triceps: 2+ bilaterally
�� Patellar: 2+ bilaterally
�� Achilles: Absent bilaterally
�� Babinski: Down going bilaterally
�� Clonus: None
�� Tonie: Negative bilaterally�
Cerebellar: Dysmetria/Ataxia: None�
Musculoskeletal:Motor: (Manual muscle scale 0-5)�
Muscle SA EF WE EE FF FA HF KE DF EHL PF
Right� 5 5 5 5 5 5 5 5 5 5 5
Left 5 5 5 5 5 5 5 5 5 5 5
�
Tone: Normal in all extremities�
Range of Motion: Passively within normal limits in all extremities�
�
Lab Results
Labs
WBC 8.4 10^3/uL (4.8-10.8) 09/21/24 16:57
RBC 5.57 10^6/uL (4.70-6.10) 09/21/24 16:57
Hgb 15.7 g/dL (13.0-18.0) 09/21/24 16:57
Hct 47.9 % (39.0-52.0) 09/21/24 16:57
MCV 86.0 fL (80.0-94.0) 09/21/24 16:57
MCH 28.2 pg (27.0-31.0) 09/21/24 16:57
MCHC 32.8 g/dL (33.0-37.0) L 09/21/24 16:57
RDW 14.6 % (11.5-14.5) H 09/21/24 16:57
Plt Count 161 10^3/uL (130-400) 09/21/24 16:57
MPV 11.4 fL (7.4-10.4) H 09/21/24 16:57
Abs Immat Gran (auto) 0.0 10^3/uL (0-0.05) 09/21/24 16:57
Absolute Neuts (auto) 5.5 10^3/uL (1.4-6.5) 09/21/24 16:57
Absolute Lymphs (auto) 2.0 10^3/uL (1.2-3.4) 09/21/24 16:57
Absolute Monos (auto) 0.7 10^3/uL (0.1-0.6) H 09/21/24 16:57
Absolute Eos (auto) 0.2 10^3/uL (0-0.7) 09/21/24 16:57
Absolute Basos (auto) 0.0 10^3/uL (0-0.2) 09/21/24 16:57
Immature Gran % 0.4 % (0-0.5) 09/21/24 16:57
Neutrophils % 64.8 % (42.2-75.2) 09/21/24 16:57
Lymphocytes % 23.5 % (20.5-51.1) 09/21/24 16:57
Monocytes % 8.4 % (1.7-9.3) 09/21/24 16:57
Eosinophils % 2.5 % (0-6) 09/21/24 16:57
Basophils % 0.4 % (0-2) 09/21/24 16:57
Nucleated RBC % 0 % (-) 09/21/24 16:57
Sodium 139 mmol/L (135-145) 09/23/24 03:57
Potassium 4.7 mmol/L (3.5-5.1) 09/23/24 03:57
Chloride 111 mmol/L (98-107) H 09/23/24 03:57
Carbon Dioxide 21 mmol/L (22-30) L 09/23/24 03:57
BUN 12 mg/dl (9-20) 09/23/24 03:57
Creatinine 0.8 mg/dL (0.7-1.3) 09/23/24 03:57
Estimated Creat Clear 73 ml/min 09/23/24 03:57
eGFR > 60.00 09/23/24 03:57
Glucose 105 mg/dl (70-99) H 09/23/24 03:57
Hemoglobin A1c 6.4 % (4.0-5.6) H 09/23/24 03:57
Calcium 9.7 mg/dl (8.4-10.2) 09/23/24 03:57
Magnesium 2.1 mg/dl (1.6-2.3) 09/22/24 02:30
Total Bilirubin 0.9 mg/dl (0.2-1.3) 09/21/24 16:57
AST 25 U/L (17-59) 09/21/24 16:57
ALT 21 U/L (0-50) 09/21/24 16:57
Alkaline Phosphatase 66 U/L (38-126) 09/21/24 16:57
Total Protein 7.2 g/dl (6.3-8.2) 09/21/24 16:57
Albumin 4.2 g/dl (3.5-5.0) 09/21/24 16:57
Triglycerides 169 mg/dl (10-149) H 09/23/24 03:57
Total Cholesterol 212 mg/dl (50-199) H 09/23/24 03:57
LDL Cholesterol, Calc 130 mg/dl 09/23/24 03:57
VLDL Cholesterol, Calc 33 mg/dl (0-30) H 09/23/24 03:57
HDL Cholesterol 49 mg/dl 09/23/24 03:57
TSH (Reflex) 2.06 uIU/ml (0.47-4.68) 09/22/24 02:31
Urine Color Luh 09/23/24 23:55
Urine Clarity Clear (Clear) 09/23/24 23:55
Urine pH 6.0 (5.0-9.0) 09/23/24 23:55
Ur Specific [place] 1.015 (<1.030) 09/23/24 23:55
Urine Ketones Negative (Negative) 09/23/24 23:55
Urine Occult Blood 4+ (Negative) A 09/23/24 23:55
Ur Occult Blood Reflex Negative (Negative) 09/22/24 02:31
Urine Nitrite Negative (Negative) 09/23/24 23:55
Urine Nitrite (Reflex) Negative (Negative) 09/22/24 02:31
Urine Bilirubin Negative (Negative) 09/23/24 23:55
Urine Urobilinogen Negative (Neg - 1+) 09/23/24 23:55
Ur Leukocyte Esterase Negative (Negative) 09/23/24 23:55
Leukocyte Esterase Rfl Negative (Negative) 09/22/24 02:31
Urine RBC 7-10 /HPF (0-2) A 09/23/24 23:55
Urine WBC None seen /HPF (0-5) 09/23/24 23:55
Ur Squamous Epith Cells 0-2 /LPF (Few) 09/23/24 23:55
Urine Glucose Negative (Negative) 09/23/24 23:55
Urine Albumin 1+ (Neg - Trace) A 09/23/24 23:55
Urine Albumin (Reflex) Negative (Neg - Trace) 09/22/24 02:31
POC Glucose 120 mg/dl (70-99) H 09/22/24 09:52
�
Diagnostic Results:�as per HPI�
MRI Brain - 09/22/2024
Scattered T2/FLAIR hyperintensities within the subcortical and periventricular white matter of the bilateral cerebral hemispheres which is nonspecific, however likely sequelae of mild small vessel ischemic disease. Moderate global parenchymal volume
loss. Small focus of encephalization within the right cerebellar hemisphere.
There is no mass or mass effect, or extra-axial fluid collection.
There is prominence of the ventricular system which is likely due to adjacent central volume loss.
Flow voids of the larger intracranial vessels are present.
Paranasal sinuses and mastoid air cells are predominantly clear.
Marrow signal pattern is within normal limits.
IMPRESSION:
There are numerous foci of restricted diffusion within the right frontal, parietal and occipital lobes as well as involving the posterior right insular cortex which are consistent with acute infarctions. There is no evidence of hemorrhagic
transformation.
Carotid ultrasound-09/23/24
�IMPRESSION:
1. Right carotid: Mixed carotid bulb and internal carotid artery plaque. Based on velocity parameters, any internal carotid artery stenosis is less than 50%.
2. Left carotid: Calcified carotid bulb plaque. Based on velocity parameters any carotid artery stenosis is less than 50%.
3. Antegrade flow right vertebral artery. Unable to visualize left vertebral artery.
CT head and neck angio with/WO constrast
FINDINGS: There is no M1 and M2 occlusion. There is no carotid dissection. There is less than 50% right proximal internal carotid artery stenosis due to calcified plaque. There is 50-69% to left proximal internal carotid artery stenosis due to
calcified plaque. There is mild calcified plaque in the carotid siphon bilaterally.
The posterior circulation is intact.
Enhanced brain parenchyma is unremarkable.
No significant lymphadenopathy is noted. The salivary glands are within normal limits.
The airway is unremarkable. Thyroid gland is normal limits. The imaged lungs show mild posterior right upper lobe atelectasis versus scarring.
The osseous structures show severe multilevel degenerative disc disease throughout the cervical spine. All levels show severe narrowing except for C4/C5 which shows moderate narrowing. Prevertebral soft tissues appear normal.
IMPRESSION: No acute vascular pathology. No M1 and M2 occlusion.
Less than 50% right proximal internal carotid artery stenosis. 50-69% left proximal internal carotid artery stenosis.
Severe multilevel degenerative disc disease. Stable.
Assessment:
83-year-old right-handed male with acute right frontal, parietal, occipital and posterior right insular cortex
�
Plan�
PM&R�PT/OT to increase independence with ADLs, improve balance, coordination, endurance, strength, mobility, community reintegration, decreased burden of care on others and family education.�
�
CVA:right frontal, parietal and occipital lobes as well as involving the posterior right insular cortex. Pradaxa 150 twice daily, statin, and blood pressure control (SBP less than 180 and diastolic less than 100 to participate with therapy for
ischemic stroke). Continue to monitor neurologic status.�
Dysarthria: mild- patient says exacerbated by dry mouth. speech evaluation�
HTN: Metoprolol 5 mg IV every 4 as needed, diltiazem 120 daily sotalol 80 mg twice daily,
HLD: Atorvastatin 80 every afternoon
Paroxysmal atrial fibrillation:�Eliquis 5 mg twice daily switched to Pradaxa 150 twice daily and sotalol 80 mg twice daily, diltiazem 120 daily, rate control medications. Plan for ablation in 2-3 months������������������������������������������
Glaucoma: Latanoprost, Simbrinza, Rhopressa 1 drop both eyes at bedtime
Psych: Psychology consult.� Monitor mood, adjust medications as needed.�
Skin: monitor for pressure sores/rashes/lesions.�
Pain: acetaminophen as needed.�
Bowel/constipation: Last BM- 5 days ago. Added Colace and Senna, PRN bisacodyl.�
Bladder/BPH: Flomax 0.4 daily . Would recommend switching to bedtime to prevent drop in blood pressure time. void, PVRs, PRN straight cath.�
GI Prophylaxis: Pantoprazole�
DVT Prophylaxis: Mechanical and Pradaxa 150 twice daily
Pulmonary: Incentive spirometry�
Safety: Continue to reinforce assistance with all transfers.�
Code Status:� Full code
Dispo�(date/plan/equipment needs): Home with family care.� Social history reviewed.�
�
Functional and Medical Goals:�Modified Independent with ADL�s, ambulation, transfers�
Discharge Destination:�Acute inpatient rehabilitation is suggested based upon medical concerns and functional status.
�
Summary of recommendations: Would benefit from acute inpatient rehabilitation for PT/OT/speech , however, patient's preference is to go home and do outpatient therapy as he is progressing well and wants to be within his own environment. Patient's
partner was not available for discussion in the room
Discharge Destination:�Acute inpatient rehabilitation
CA:right frontal, parietal and occipital lobes as well as involving the posterior right insular cortex. Pradaxa 150 twice daily, statin, and blood pressure control (SBP less than 180 and diastolic less than 100 to participate with therapy for
ischemic stroke). Continue to monitor neurologic status.�
HTN: Metoprolol 5 mg IV every 4 as needed, diltiazem 120 daily sotalol 80 mg twice daily-blood pressure must be controlled upon discharge on oral medications only
Paroxysmal atrial fibrillation:�Eliquis 5 mg twice daily switched to Pradaxa 150 twice daily and sotalol 80 mg twice daily, diltiazem 120 daily, rate control medications. Plan for ablation in 2-3 months�������
Bowel/constipation: Last BM- 5 days ago. Recommending Colace and Senna, PRN bisacodyl.�
Bladder/BPH: Flomax 0.4 daily . Would recommend switching timing of Flomax to HS to prevent drop in blood pressure void, PVRs, PRN straight cath.�
DVT Prophylaxis: Mechanical and Pradaxa 150 twice daily
Attending Statement:
I saw and examined the patient today. Reviewed care plan with patient, therapy, nursing, and physician assistant project manager. I agree with the above subjective and physical exam, and plan as documented by GABY Hall with adjustments made as necessary.�
�
Thank you for allowing me to care for your patient. Please contact me with any questions or concerns.
Consultation
-
Date/Time Consultation Performed: 09/24/2024
Requesting Provider: Dr. Jone Sumner
Performing Provider: Dr. Alexis Henry
Reason for Consultation: Stroke
[2024-09-24] MEDS: LIPITOR 80 MG PO (17:36)
[2024-09-24] MEDS: XALATAN OPHTHALMIC SOLUTION 1 DROP OPHTH (17:36)
--- NOTE | 2024-09-24 18:40 | PTCARENOTE ---
Pt w/ 5.43 sec. pause. Strip in chart. BP 84/56. Pt asymptomatic. Sitting upright in bed eating dinner. Catarina AMANDA aware. Pt made NPO. Recheck BP 91/65. Labs ordered and sent.
[2024-09-24 19:06] LABS: Hemoglobin 16.4 g/dL (13.0-18.0); Mean Corp Hgb Conc. 34.2 g/dL (33.0-37.0); Mean Corpuscular Hgb 28.6 pg (27.0-31.0); Mean Corpuscular Volume 83.8 fL (80.0-94.0); Mean Platelet Volume 10.7 fL (7.4-10.4); Platelet Count 168 10^3/uL (130-400); Red Blood Cell Count 5.73 10^6/uL (4.70-6.10); Red Cell Dist. Width 14.6 % (11.5-14.5); White Blood Cell Count 8.9 10^3/uL (4.8-10.8)
[2024-09-24 19:13] LABS: APTT 46.2 Sec (23.4-35.0)
[2024-09-24] MEDS: HEPARIN 4000 UNITS IV (19:50)
[2024-09-24] MEDS: HEPARIN 25000 UNITS/250 ML IV (21:03)
[2024-09-24] MEDS: NON-FORMULARY ITEM 1 UNIT OPHTH (21:20)
[2024-09-25] VITALS (9 sets, daily range): BP systolic 99–135; BP diastolic 62–78; BMI 28.2
--- NOTE | 2024-09-25 00:10 | PTCARENOTE ---
Rec'd at change of shift. Pt Afib on TELE monitor, VSS, and AAO*3. Occasional 2 second pauses, Dr valle aware. Pt made NPO and rec'd order for heparin gtt. NIH assessment complete. Pt denies any pain or discomfort. Pt maintained on
bedrest. Pt asymptomatic and agreed to bedrest at this time. Pt resting with call giles in reach and plan of care ongoing. See MAR and flowchart for full pt care and assessment.
[2024-09-25 03:52] LABS: APTT 94.3 Sec (23.4-35.0)
[2024-09-25] MEDS: SIMBRINZA 1%-0.2% OPHTH SUSP 1 DROP OPHTH ×3 (09:10→18:33)
[2024-09-25] MEDS: FLOMAX 0.4 MG PO (09:10)
[2024-09-25] MEDS: BETAPACE 80 MG PO ×2 (09:10→20:10)
--- NOTE | 2024-09-25 11:56 | PTCARENOTE ---
pt afib on the monitor, hr in the 90s, vss. pt back from ppm. dressing is cdi. pt offers no complaints at this time. pt resting in bed comfortably. family at bedside visiting. call giles within reach.
--- NOTE | 2024-09-25 12:33 | ITS.CL.PACE ---
Technical Buyer - Pacemaker Implant
Pacemaker Implant
Procedure Report:
Date of Procedure: September 25, 2024.
Procedure: Pacemaker Implantation. Left upper extremity venogram.
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 Persistent AFib with fast and slow responses with pauses up to 5.5 seconds while awake.
Performing physician: Tima Arias MD, [facility].
Implants:
Pulse Generator: Medtronic; Model# [id number]; Serial# [id number].
RV Lead: Medtronic; Model# 5076-52cm; Serial# [id number].
RV Lead: Medtronic; Model# 3830-69cm; Serial# [id number].
Technique: A time out was performed. A 10 mL upper extremity venogram demonstrated patent left axillary, cephalic, and subclavian veins. The procedure site was identified. The patient was anesthetized by the anesthesia service. Preoperative
cefazolin was administered. The patient was prepped and draped in the usual fashion. Local anesthetic was applied to the left prepectoral subcutaneous tissue. A 3 inch incision was made along the left deltopectoral groove. Dissection was carried to
the fascia. The left cephalic vein was easily isolated and proximal and distal control with 2-0 Vicryl suture. Using a micropuncture needle to access the cephalic vein under direct visualization a wire was advanced into the central circulation. A 7
Fr introducer was placed to allow two 0.35 J wires to be advanced. The leads were introduced with hemostatic peel away introducer sheaths. The RV lead was placed using utilizing the Magazino His delivery catheter ([id number]) that was advanced to the
left bundle area as confirmed by fluoroscopy in the ARABIC and CASAREZ projections. The lead tip was advanced. PVC morphology was reviewed. When a satisfactory location was identified (W pattern observed) the lead was screwed into position with serial
turns. Septal engagement was confirmed with gentle torque applied to the guide sheath. After each series of turns (2-3) unipolar sensed morphology and impedance, and paced morphology of V1 was analyzed. The lead was further advanced until
satisfactory morphology and electrical characteristics were confirmed. The RV lead was placed in the third location evaluated. The long guiding sheath was cut and removed from the RV without change in lead position, impedance, sensing, or capture.
The ventricular lead was secured to the pectoralis muscle and fascia with two 0-silk sutures. The atrial lead was placed in the right atrial appendage. 8 volt pacing from each lead did not capture the diaphragm. The atrial leads was secured to the
pectoralis muscle and fascia. A subcutaneous pocket was created with Bovie cautery. Hemostasis was excellent. The leads were appropriately attached to the device. The pocket was irrigated with antibiotic solution. The device and leads were placed in
the pocket. The incision was closed in three layers with absorbable suture. Steri-strips and a silver impregnated dressing were placed. Estimated blood loss was 10 ml. There were no complications. Fluoroscopy time 5.7 minutes and DAP 2.19 GyCM2.
The device was then interrogated after skin closure.
Lead Analysis:
RA lead: AFib: 1.6 mV; Threshold: N/A; Impedance: 798 ohms.
RV lead (bipolar): R: 8.4 mV; Threshold: 0.75 V @ 0.4 ms; Impedance: 855 ohms.
Paced QRS characteristics: V1 has QR morphology and measures 100 ms in duration, LVAT (stim to peak V5/V6) is 63 ms, and R peak V1 to R peak V6 is 44 ms.
Final Programming: MVP (AAIR to DDDR) 60-130 bpm.
Conclusion: Uncomplicated Medtronic pacemaker implant. The pacing system is MRI conditional.
Recommendation: Routine post pacemaker care.
cc: Luis Daniel Myers MD and Dawit Remy DO.
--- NOTE | 2024-09-25 12:51 | CM ---
Addendum entered by Lety Escalante 09/25/24 13:03:
[facility] at [place] can accept tomorrow if he is medically stable. The telephone number for report is([phone]) Just need to send discharge instructions with him. Will need to call Meghana at ([phone]) if he is not ready for
transfer. The discharge plan is to go to [facility] at [place] on Saturday09/26/24.
Original Note:
Reviewed chart. Met with Mr. Pal and his significant other to review discharge plans. We reviewed acute rehab. at [facility] at [place]. He is agreeable to a shrt term stay at [facility] at [place]. Telephone call to [facility] at
[place] Liaison to update her on he is agreeble to going and maybe ready for Saturday. 09/26/24. Left message. Medical work-up in progress. The discharge plan is to [facility] at [place] when medically stable.
--- NOTE | 2024-09-25 13:14 | W.PN.HOSP.TC ---
Today's Communication/Plan
-
Continue current care
Assessment / Plan
Assessment / Plan
Gen-AAOx3, NAD
HEENT-NC, AT, anicteric, clear oral mm
Neck-supple
CV-reg, no M, +S1/S2
Lungs-clear B/L
Abd-soft, NT, ND
Ext-no edema
Musculoskeletal-no cyanosis, clubbing
Skin-warm and dry
Neuro-grossly non-focal
Psych-calm, cooperative
Acute strokes -noted on MRI, right frontal, parietal, occipital lobes, as well as posterior right insular cortex. Differential diagnosis of embolic strokes versus ischemic due to hypotension.
Timing of stroke suspicious for hemodynamic influence given onset 2 hours after IV Cardizem morning of September 22. Nursing noted fairly rapid drop in heart rate and blood pressure after Cardizem administration. He never received IV Cardizem infusion,
only got the bolus dose.
Patient feels back to baseline, no significant neurologic deficits on exam.
CTA head and neck shows no acute vascular pathology. No M1/M2 occlusion. Less than 50% right proximal ICA stenosis, 50 to 69% left proximal ICA stenosis. Severe multilevel degenerative disc disease.
Carotid ultrasound shows less than 50% bilateral carotid stenosis.
PT/OT consulted. No issues with swallowing.
Paroxysmal atrial fibrillation -with RVR. Presented with symptoms of generalized weakness and fall.
TSH 2.0.
Diltiazem oral started for rate control, rates overall have improved.
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
Cardiology switched Eliquis to Pradaxa for potential Eliquis failure. Anticoagulation now on hold for pacemaker, to resume tomorrow night as per cardiology.
Essential hypertension with hypertensive urgency -urgency resolved. Ramipril on hold for relative hypotension.
Impaired fasting glucose -hemoglobin A1c 6.4%. Weight loss should help.
Hyperlipidemia -on simvastatin at home, currently on atorvastatin.
Nursing notes urinary frequency and need to stand to urinate. Bladder scan without significant residual volume. Urinalysis negative. Continue Flomax.
Full code
Dispo [facility] if cleared by [facility]ology.
Anticipated Discharge: Within 24 hours
Subjective/Interval History
-
Date of Service: September 25, 2024
Patient seen and examined. No complaints.
Objective Data
-
Labs:
Laboratory Results
09/25/24 09/25/24
03:31 10:00
APTT 94.3 H Pending
Vital Signs:
Vital Signs
Temp Pulse Resp BP Pulse Ox
97.9 F 97 18 127/77 94
09/25/24 11:55 09/25/24 11:55 09/25/24 11:55 09/25/24 09:10 09/25/24 11:55
I&O
09/24/24 09/25/24 09/26/24
06:59 06:59 06:59
Intake Total 760 / 760 1120 / 1120
Output Total 50 / 50 350 / 350
Balance 710 / 710 770 / 770
Review of Systems
-
History Source: Patient
All other systems: Reviewed and negative
--- NOTE | 2024-09-25 17:17 | PTCARENOTE ---
pt is sr on the monitor, hr in the 80s, vss. pt offers no complaints at this time. pt resting in bed comfortably. right radial is cdi. call giles within reach.
[2024-09-25] MEDS: ANCEF 5 IV (18:33)
[2024-09-25] MEDS: LIPITOR 80 MG PO (18:33)
[2024-09-25] MEDS: TOPROL XL 50 MG PO (18:34)
[2024-09-25] MEDS: XALATAN OPHTHALMIC SOLUTION 1 DROP OPHTH (18:38)
--- NOTE | 2024-09-25 19:20 | PTCARENOTE ---
pt now sr on the monitor, hr in the 70s, vss. pt offers no complaints at this time. right radial cdi. pt offers no complaints at this time. pt ambulated to bathroom and tolerated well. pt educated on plan of care and pt verbalized understanding.
call giles within reach.
[2024-09-25] MEDS: NON-FORMULARY ITEM 1 UNIT OPHTH (22:50)
--- NOTE | 2024-09-25 23:58 | PTCARENOTE ---
Rec'd pt at change of shift. Pt AAO*3, VSS, Apaced on TELE monitor. Pt denies any pain or discomfort but requested warm blanket for stiff neck. Pt with L arm immobilized and pt aware and agreed to LUE restrictions. Pt resting with call giles in
reach. See MAR and flowchart for full pt care and assessment.
[2024-09-26] MEDS: ANCEF 5 IV (04:26)
[2024-09-26 04:28] VITALS: BP 150/81
[2024-09-26 04:48] VITALS: BMI 28.3
[2024-09-26 05:17] LABS: Hematocrit 46.3 % (39.0-52.0); Hemoglobin 15.4 g/dL (13.0-18.0); Mean Corp Hgb Conc. 33.3 g/dL (33.0-37.0); Mean Corpuscular Hgb 27.9 pg (27.0-31.0); Mean Corpuscular Volume 83.9 fL (80.0-94.0); Mean Platelet Volume 11.5 fL (7.4-10.4); Platelet Count 153 10^3/uL (130-400); Red Blood Cell Count 5.52 10^6/uL (4.70-6.10); Red Cell Dist. Width 14.2 % (11.5-14.5); White Blood Cell Count 8.1 10^3/uL (4.8-10.8)
[2024-09-26 05:40] LABS: Blood Urea Nitrogen 20 mg/dl (9-20); Calcium 9.1 mg/dl (8.4-10.2); Carbon Dioxide 20 mmol/L (22-30); Chloride 110 mmol/L (98-107); Estimated Creatinine Clearance 65 ml/min; Glucose 91 mg/dl (70-99); Magnesium 2.1 mg/dl (1.6-2.3); Potassium 4.5 mmol/L (3.5-5.1); Sodium 138 mmol/L (135-145); eGFR > 60.00
[2024-09-26 07:15] VITALS: BP 133/67
--- NOTE | 2024-09-26 07:57 | W.PN.HOSP.TC ---
Today's Communication/Plan
-
Discharge
Assessment / Plan
Assessment / Plan
Gen-AAOx3, NAD
HEENT-NC, AT, anicteric, clear oral mm
Neck-supple
CV-reg, no M, +S1/S2
Lungs-clear B/L
Abd-soft, NT, ND
Ext-no edema
Musculoskeletal-no cyanosis, clubbing
Skin-warm and dry
Neuro-grossly non-focal
Psych-calm, cooperative
Acute strokes -noted on MRI, right frontal, parietal, occipital lobes, as well as posterior right insular cortex. Differential diagnosis of embolic strokes versus ischemic due to hypotension.
Timing of stroke suspicious for hemodynamic influence given onset 2 hours after IV Cardizem morning of September 22. Nursing noted fairly rapid drop in heart rate and blood pressure after Cardizem administration. He never received IV Cardizem infusion,
only got the bolus dose.
Patient feels back to baseline, no significant neurologic deficits on exam.
CTA head and neck shows no acute vascular pathology. No M1/M2 occlusion. Less than 50% right proximal ICA stenosis, 50 to 69% left proximal ICA stenosis. Severe multilevel degenerative disc disease.
Carotid ultrasound shows less than 50% bilateral carotid stenosis.
PT/OT consulted. No issues with swallowing.
Paroxysmal atrial fibrillation -with RVR. Presented with symptoms of generalized weakness and fall. Spontaneously converted to sinus rhythm overnight. EKG this morning noted.
TSH 2.0.
Continue metoprolol, sotalol.
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
Cardiology switched Eliquis to Pradaxa for potential Eliquis failure. Cardiology recommends resuming Pradaxa 09/[address] Arias.
Essential hypertension with hypertensive urgency -urgency resolved. Ramipril on hold for relative hypotension.
Impaired fasting glucose -hemoglobin A1c 6.4%. Weight loss should help.
Hyperlipidemia -on simvastatin at home, currently on atorvastatin.
Nursing notes urinary frequency and need to stand to urinate. Bladder scan without significant residual volume. Urinalysis negative. Continue Flomax.
Full code
Dispo -medically stable for discharge to [facility] today. Outpatient follow-up.
32 minutes spent in discharge process.
Anticipated Discharge: Today
Subjective/Interval History
-
Date of Service: September 26, 2024
Patient seen and examined. Slept well. No complaints.
Objective Data
-
Labs:
Laboratory Results
09/25/24 09/26/24
17:30 04:48
WBC 8.1
Hgb 15.4
Hct 46.3
Plt Count 153
APTT Cancelled
Sodium 138
Potassium 4.5
Chloride 110 H
Carbon Dioxide 20 L
BUN 20
Creatinine 0.9
Glucose 91
Calcium 9.1
Vital Signs:
Vital Signs
Temp Pulse Resp BP Pulse Ox
98.5 F 65 20 150/81 96
09/26/24 07:15 09/26/24 04:28 09/26/24 07:15 09/26/24 04:28 09/26/24 07:15
I&O
09/25/24 09/26/24 09/27/24
06:59 06:59 06:59
Intake Total 1120 / 1120 720 / 720
Output Total 350 / 350
Balance 770 / 770 720 / 720
Review of Systems
-
History Source: Patient
All other systems: Reviewed and negative
--- NOTE | 2024-09-26 08:00 | W.DS.TRANS ---
DC Summary - [employer] Analyst
-
Discharge Instructions:
Discharge Diagnosis/Procedures Acute strokes, rapid atrial fibrillation,
pacemaker implant 09/25/24
Diet Low Fat,Low Cholesterol,2 Gram Sodium
Activity With assistance
Driving Restrictions No driving for 1 week
Bathing Restrictions OK to Shower
Instructions:
Stand-Alone Forms: DC Inst - Implanted Device
Changes to Home Medications: Yes
Discharge Medications:
DC Medications w/original date entered in [employer]
bimatoprost 0.01 % eye drops (Lumigan) 1 drp ophthalmic (eye) QPM Eye Condition 09/22/24
brinzolamide 1 %-brimonidine 0.2 % eye drops,suspension (Simbrinza) 1 drp ophthalmic (eye) TID Eye Condition 09/22/24
netarsudil 0.02 % eye drops (Rhopressa) 1 drp ophthalmic (eye) QPM Eye Condition 09/22/24
sotalol 80 mg tablet 80 mg PO BID Arrhythmia 09/22/24
atorvastatin 80 mg tablet 80 mg PO QPM #0 tabs 09/25/24
dabigatran etexilate 150 mg capsule (Pradaxa) 150 mg PO BID #0 caps 09/25/24
latanoprost 0.005 % eye drops 1 drp BOTH EYES QPM #0 mL 09/25/24
metoprolol succinate 50 mg tablet,extended release 24 hr 50 mg PO QPM #0 tabs 09/25/24
tamsulosin 0.4 mg capsule 0.4 mg PO DAILY #0 caps 09/25/24
Home Medication Changes
Stop Eliquis
Stop ramipril
Pending Results: No
[2024-09-26] MEDS: SIMBRINZA 1%-0.2% OPHTH SUSP 1 DROP OPHTH ×2 (08:08→12:07)
[2024-09-26] MEDS: BETAPACE 80 MG PO (08:21)
[2024-09-26] MEDS: FLOMAX 0.4 MG PO (08:22)
[2024-09-26 09:23] VITALS: BP 139/70
[2024-09-26 09:30] VITALS: BP 139/70
--- NOTE | 2024-09-26 13:56 | PTCARENOTE ---
~[id number]: Handoff reporet received from nightshift RN. Pt AOx4, NIHSS negative at this time. , NSR with occassional A pacing 60s-70s, SBP 130s-150s. Patient denies pain at this time. Limb immobilizer removed per protocol, education provided on
limb restrictions. L upper chest dressing CDI. Patient worked with PT, walked in [place] with walker Ax1, OOB to chair for breakfast. All needs met a this time, call giles within reach.
~[id number]: Patient in room, at bedside. patient in stable condition. Per [facility], they will call when they want report. Around 1230, report given to [facility].
~1330: Patient transferred to rehab in wheelchair in stable condition.
== END 2024-09-26 14:41 | DRG 242 ==
LOC: IVU 09:04
PROVIDERS: Emergency Medicine; Internal Medicine Cardiovascular Disease; Nurse Practitioner; Nurse Practitioner Adult Health; ADMITTING PHYSICIAN Internal Medicine; ATTENDING PHYSICIAN Hospitalist; CONSULT PHYSICIAN Physical Medicine & Rehabilitation; CONSULT PHYSICIAN Psychiatry & Neurology Neurology; EMERGENCY PHYSICIAN Emergency Medicine; FAMILY PHYSICIAN Internal Medicine; OTHER PHYSICIAN Student in an Organized Health Care Education/Training Program
PROC: B50N1ZZ Plain Radiography of Left Upper Extremity Veins using Low Osmolar Contrast (ICD-10-PCS; 2024-09-25)
PROC: 02H63JZ Insertion of Pacemaker Lead into Right Atrium, Percutaneous Approach (ICD-10-PCS; 2024-09-25)
PROC: 0JH606Z Insertion of Pacemaker, Dual Chamber into Chest Subcutaneous Tissue and Fascia, Open Approach (ICD-10-PCS; 2024-09-25)
PROC: 02HK3JZ Insertion of Pacemaker Lead into Right Ventricle, Percutaneous Approach (ICD-10-PCS; 2024-09-25)
DX: I48.19 Other persistent atrial fibrillation (principal); I63.40 Cerebral infarction due to embolism of unspecified cerebral artery; I44.1 Atrioventricular block, second degree; I10 Essential (primary) hypertension; I16.0 Hypertensive urgency; W19.XXXA Unspecified fall, initial encounter; I49.5 Sick sinus syndrome; K21.9 Gastro-esophageal reflux disease without esophagitis; E78.00 Pure hypercholesterolemia, unspecified; Z79.01 Long term (current) use of anticoagulants; Z79.899 Other long term (current) drug therapy; Z82.3 Family history of stroke; H53.462 Homonymous bilateral field defects, left side; I65.23 Occlusion and stenosis of bilateral carotid arteries; K59.00 Constipation, unspecified; N40.0 Benign prostatic hyperplasia without lower urinary tract symptoms; R29.709 NIHSS score 9; R29.810 Facial weakness
CPT/HCPCS: 33208; 70450; 70496; 70498; 70551; 71045; 72125; 80048; 80053; 80061; 81003; 81015; 82962; 83036; 83735; 84443; 85025; 85027; 85730; 93005; 93306; 93880; 97116; 97129; 97163; 97167; 97530; 97535; 99285; C1769; C1785; C1887; C1892; C1898; Q9967

== ENCOUNTER 2024-10-01 18:38 | Emergency (ER) | payer MEDICARE, OTHER, SELFPAY ==
[2024-10-01] VITALS (17 sets, daily range): BP systolic 89–146; BP diastolic 64–106
[2024-10-01] MEDS: CARDIZEM 10 MG IV (19:10)
[2024-10-01 19:12] LABS: % Basophils 0.4 % (0-2); % Eosinophils 2.5 % (0-6); % Immature Granulocytes 0.2 % (0-0.5); % Lymphocytes 23.1 % (20.5-51.1); % Monocytes 6.1 % (1.7-9.3); % Neutrophils 67.7 % (42.2-75.2); Absolute Eosinophils 0.2 10^3/uL (0-0.7); Absolute Lymphocytes 1.9 10^3/uL (1.2-3.4); Absolute Monocytes 0.5 10^3/uL (0.1-0.6); Absolute Neutrophils 5.5 10^3/uL (1.4-6.5); Hematocrit 47.9 % (39.0-52.0); Mean Corp Hgb Conc. 33.4 g/dL (33.0-37.0); Mean Corpuscular Hgb 28.3 pg (27.0-31.0); Mean Corpuscular Volume 84.6 fL (80.0-94.0); Mean Platelet Volume 11.4 fL (7.4-10.4); Nucleated Red Blood Cells % 0 % (-); Platelet Count 178 10^3/uL (130-400); Red Blood Cell Count 5.66 10^6/uL (4.70-6.10); Red Cell Dist. Width 14.5 % (11.5-14.5); White Blood Cell Count 8.1 10^3/uL (4.8-10.8)
[2024-10-01 19:44] LABS: ALT (SGPT) 26 U/L (0-50); AST (SGOT) 33 U/L (17-59); Alkaline Phosphatase 86 U/L (38-126); Blood Urea Nitrogen 22 mg/dl (9-20); Carbon Dioxide 21 mmol/L (22-30); Chloride 106 mmol/L (98-107); Estimated Creatinine Clearance 65 ml/min; Glucose 154 mg/dl (70-99); Sodium 135 mmol/L (135-145); Total Bilirubin 0.9 mg/dl (0.2-1.3); Total Protein 6.6 g/dl (6.3-8.2); eGFR > 60.00
--- NOTE | 2024-10-01 22:34 | ED.GENMED ---
History of Present Illness
General
Chief Complaint: Heart Rate Problem
Time Seen by Provider: 10/01/24 18:48
History of Present Illness
History of Present Illness:
Note:
CHIEF COMPLAINT(S)
Irregular heart rhythm
HISTORY OF PRESENT ILLNESS
The patient is a male with a history of atrial fibrillation and recent pacemaker placement who presents with an irregular heart rhythm. He had a stroke the previous Saturday and subsequently received a pacemaker on the following Saturday. He reports
improvement in heart rate since the pacemaker placement, describing it as 'smooth and low.' The patient denies chest pain, dyspnea, or other acute symptoms at present. He mentions being on a blood thinner, which he identifies as dabigatran.
ADDITIONAL HISTORY OBTAINED FROM SOURCES OTHER THAN THE PATIENT
According to the patient�s account, previous episodes included a heart rate of 145 bpm with atrial flutter and 2 to 1 conduction identified on EKG.
MEDICATIONS
Dabigatran
REVIEW OF SYSTEMS
- Cardiovascular: Denies current chest pain or breathing difficulties.
- General: Denies acute symptoms currently.
PHYSICAL EXAM
- Cardiovascular: Heart is irregularly irregular.
- Neurological: Patient is awake, alert, oriented, and exhibits no focal motor deficits.
- Skin: Postoperative wound with recent pacemaker placement, evidenced by healing ecchymosis on the left upper chest extending into the left arm.
- Eyes: Bilateral conjunctival and scleral injection.
- Extremities: No edema in the legs.
Nursing notes reviewed and vital signs reviewed.
EXTERNAL RECORDS REVIEWED
Review of [facility] EKG showing atrial flutter with 2 to 1 conduction and a heart rate of 145 bpm, with non-specific changes. Holter monitor indicates heart rate of 101 bpm with atrial flutter and variable block.
DIFFERENTIAL DIAGNOSIS
The Differential Diagnosis includes, in no particular order and is not limited to:
1. Atrial fibrillation
2. Atrial flutter
3. Pacemaker malfunction
4. Conduction system disease
5. Electrolyte imbalance
6. Thyrotoxicosis
7. Pulmonary embolism
8. Myocardial ischemia
9. Hypertensive heart disease
10. Mitral valve disease
EKG
My independent EKG interpretation is:
- Rhythm: Atrial flutter with 2:1 conduction
- Heart Rate: 147 beats per minute
- Notable Observations: Nonspecific rate-related changes
Disposition:
SUMMARY OF ENCOUNTER
The patient presented with atrial flutter at a rapid ventricular response and transitioned to atrial fibrillation. The patients heart rate has reduced to the 90s, and he is currently asymptomatic.
DISPOSITION
Discharged.
ASSESSMENT
Atrial fibrillation with rapid ventricular response, history of atrial fibrillation with anticoagulation.
PLAN
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
INDEPENDENT REVIEW OF LABS AND INTERPRETATION OF TESTS
My independent review of lab results shows normal hemoglobin, normal white blood cell count, and grossly unremarkable chemistry.
MEDICAL DECISION MAKING
1. Number & Complexity of Problems: Chronic conditions affecting care: history of atrial fibrillation, anticoagulation.
2. Data Reviewed: Labs and vitals reviewed.
3. Risk: Consideration of admission/observation was made due to complex cardiovascular condition. However, outpatient management is appropriate based on reassuring work-up, stable vitals, symptom control, and follow-up reliability.
PATHOLOGIES TO CONSIDER
Pulmonary embolism, myocardial ischemia, atrial flutter and fibrillation causing hemodynamic instability.
Past History
Past History
ED Past Medical History: Arrthythmia and Hypercholesterolemia
ED Past Surgical History: None, Orthopedic and Other (Mohs surgery. Hernia repair)
Social History
Tobacco: Non-smoker
Living: with family
Phy Exam
Physical Exam
Physical Exam:
.
Course
Orders/Labs/Results
Orders:
Orders
10/01/24 18:45
Electrocardiogram (*1) Urgent
Reason for Study: Chest Pain
Cardiac Monitoring- Treatment ONCE
EKG- Treatment ONCE
IV Insert/Care/Rem.- Treatment PRN
O2 Therapy [RESP] Urgent
Titrate/Wean O2 to maintain O2 sat greater than (%): 90
Special Instructions: Maintain sats >/=90%
Pulse Ox/spot Check [RESP] Urgent
Quantity: 1
Special Instructions: ON ROOM AIR
10/01/24 19:03
Complete Blood Count/With Diff Urgent
Comprehensive Metabolic Panel Urgent
10/01/24 19:07
Diltiazem HCl [Cardizem] 10 mg IV NOW STA
Abnormal Lab Results
10/01/24
19:03
MPV 11.4 H fL
(7.4-10.4)
Carbon Dioxide 21 L mmol/L
(22-30)
BUN 22 H mg/dl
(9-20)
Glucose 154 H mg/dl
(70-99)
10/01/24 19:03
10/01/24 19:03
Vital Signs
Initial and Last Documented VS:
Initial Vital Signs
BP
102/85
10/01/24 18:40
Last Documented Vital Signs
Temp Pulse Resp BP Pulse Ox
98.7 F 101 24 124/80 97
10/01/24 18:45 10/01/24 22:15 10/01/24 22:15 10/01/24 22:00 10/01/24 22:15
*Pulse Oximetry
SaO2: 97
Oxygen Mode of Delivery: Room air
Patient hypoxic: no
*Critical Care Note
Total Time (30-74mins, 75-104mins- exclusive of procedures): 30 minutes
ED Attending Note
-
Portions of this chart may have been created with voice recognition software.� Occasional wrong word or��sound alike� substitutions may have occurred due to the inherent limitations of voice recognition software.
Discharge Plan
Departure
Patient Disposition: Home (Routine Discharge)
Date of Disposition: 10/01/24
Time of Disposition: 22:37
Patient with high blood pressure during this ER visit?: No
Discharge Problem:
Atrial flutter
Instructions: Atrial Fibrillation (DC), Palpitations (DC)
Prescriptions:
No Action
sotalol 80 mg Tablet
80 mg PO BID
Simbrinza 1-0.2 % Drops,Suspension
1 drp OPHTHALMIC (EYE) TID
Rx Instructions:
8AM, 12PM, 6PM
Lumigan 0.01 % Drops
1 drp OPHTHALMIC (EYE) HS
Rhopressa 0.02 % Drops
1 drp OPHTHALMIC (EYE) QPM
Rx Instructions:
Bedtime
atorvastatin 80 mg Tablet
80 mg PO QPM Qty: 0 0RF
tamsulosin 0.4 mg Capsule
0.4 mg PO DAILY Qty: 0 0RF
dabigatran etexilate [Pradaxa] 150 mg Capsule
150 mg PO BID Qty: 0 0RF
metoprolol succinate 50 mg Tablet Extended Release 24 Hr
50 mg PO QPM Qty: 0 0RF
latanoprost 0.005 % drops
1 drp BOTH EYES HS
Referrals:
Dawit Remy I., DO [Family Provider, Internal Medicine]
Activity Restrictions/Additional Instructions:
Please ensure follow-up with your veterinary technician instructor tomorrow. Return immediately for chest pain, shortness of breath, palpitations, weakness of any kind, passing out episode or any other concerns.
Interventions
Interventions:
*Risk Screen - Suicide Last Done: 10/01/24 18:45
*General Assessment Last Done: 10/01/24 18:45
*Neglect/Abuse Screening Last Done: 10/01/24 18:45
*ED- Fall Risk Assessment Last Done: 10/01/24 18:45
*ED COVID-19 Vaccine History Last Done: 10/01/24 18:45
ED- Cardiac Assessment Last Done: 10/01/24 19:40
ED- Pulmonary Assessment Last Done: 10/01/24 19:40
Discharge Date and Time
Print Language: URDU
== END 2024-10-01 23:23 | disposition home or self-care (01) ==
LOC: EMR 18:38
PROVIDERS: EMERGENCY PHYSICIAN Emergency Medicine; FAMILY PHYSICIAN Internal Medicine
DX: I48.92 Unspecified atrial flutter (principal); I48.91 Unspecified atrial fibrillation; E78.00 Pure hypercholesterolemia, unspecified; Z95.0 Presence of cardiac pacemaker
CPT/HCPCS: 96374; 99284; 80053; 85025; 93005

== ENCOUNTER 2024-12-11 12:56 | Outpatient (RCR) | payer MEDICARE, OTHER, SELFPAY | END 2024-12-11 23:59 | disposition home or self-care (01) | LOC: ROT 12:56 | PROVIDERS: ATTENDING PHYSICIAN Registered Nurse Critical Care Medicine; FAMILY PHYSICIAN Internal Medicine | DX: I69.354 Hemiplegia and hemiparesis following cerebral infarction affecting left non-dominant side (principal); I69.310 Attention and concentration deficit following cerebral infarction; I69.311 Memory deficit following cerebral infarction; Z73.6 Limitation of activities due to disability; Z02.4 Encounter for examination for driving license; W19.XXXD Unspecified fall, subsequent encounter | CPT/HCPCS: 97112; 97167; 97530; 97537 ==

== ENCOUNTER 2024-12-22 07:22 | Outpatient (RCR) | payer MEDICARE, OTHER, SELFPAY | END 2025-01-12 14:14 | disposition home or self-care (01) | LOC: ROT 07:22 | PROVIDERS: ATTENDING PHYSICIAN Registered Nurse Critical Care Medicine; FAMILY PHYSICIAN Internal Medicine | DX: I69.354 Hemiplegia and hemiparesis following cerebral infarction affecting left non-dominant side (principal); I69.310 Attention and concentration deficit following cerebral infarction; I69.311 Memory deficit following cerebral infarction; Z73.6 Limitation of activities due to disability; Z02.4 Encounter for examination for driving license; W19.XXXD Unspecified fall, subsequent encounter | CPT/HCPCS: 97112; 97530; 97537 ==

== ENCOUNTER 2025-02-02 06:39 | Day surgery (SDC) | payer MEDICARE, OTHER, SELFPAY ==
[2025-02-02 07:55] VITALS: BMI 30.7
[2025-02-02 09:20] VITALS: BP 145/89
--- NOTE | 2025-02-02 09:20 | PTCARENOTE ---
Pt brought to rec rm 12B post ANAI. AAOx4, off O2. Post ANAI care to be discussed with Dr Lake Who is currently in a case.
[2025-02-02 09:35] VITALS: BP 145/81
[2025-02-02 09:47] VITALS: BP 156/92
[2025-02-02] MEDS: PRADAXA 150 MG PO (10:30)
== END 2025-02-02 10:37 | disposition home or self-care (01) ==
LOC: CATH 06:39
PROVIDERS: ATTENDING PHYSICIAN Internal Medicine Cardiovascular Disease; FAMILY PHYSICIAN Internal Medicine; OTHER PHYSICIAN Internal Medicine Cardiovascular Disease
DX: I48.19 Other persistent atrial fibrillation (principal); I08.3 Combined rheumatic disorders of mitral, aortic and tricuspid valves; Z86.73 Personal history of transient ischemic attack (TIA), and cerebral infarction without residual deficits; I10 Essential (primary) hypertension; I49.5 Sick sinus syndrome; E78.5 Hyperlipidemia, unspecified; Z95.0 Presence of cardiac pacemaker; Z79.02 Long term (current) use of antithrombotics/antiplatelets; Z79.899 Other long term (current) drug therapy; I77.810 Thoracic aortic ectasia; I51.3 Intracardiac thrombosis, not elsewhere classified; I70.0 Atherosclerosis of aorta; I08.8 Other rheumatic multiple valve diseases
CPT/HCPCS: 93312; 93320; 93325; 86850; 86900; 86901